=== PATIENT | female | born 1940 | race Caucasian/White ===

== ENCOUNTER 2017-04-16 11:34 | Emergency (ER) | payer MEDICARE, MEDICAID ==
--- NOTE | 2017-04-16 12:49 | ER Document Report ---
ED General - General Mode of Arrival: Wheelchair Information source: Patient TRAVEL OUTSIDE OF THE [place] IN LAST 30 DAYS: No - HPI Onset: Other - Refer to HPI notes <JEREMIE JARRETT - Last Filed: 04/16/17 13:09> <ELISA LEDESMA - Last Filed: 04/16/17 16:12> <ARLENECAMILLA F - Last Filed: 04/16/17 18:20> - General Chief Complaint: Abdominal Pain Stated Complaint: STOMACH PAIN Time Seen by Provider: 04/16/17 12:46 Notes: Patient is a 76 year old female presenting to the emergency department for headache and abdominal pain. Patient's pain has been waxing and waning for 1 week. Patient states her pain is progressively getting worse. Patient also complains of nausea but no vomiting. Patient is followed by [facility]. Patient states that she has not had her blood pressure medications for 1 week because she ran out of her clonidine and lisinopril. Patient was evaluated at [facility] and sent to the ED for further evaluation. Patient has a history of hypertension, diabetes mellitus, hypercholesterolemia, migraine headaches, arthritis, and a hiatal hernia repair in 1994. Patient is allergic to tetracycline and morphine. (JEREMIE JARRETT) - Related Data Allergies/Adverse Reactions: tetracycline [Tetracycline] Allergy (Intermediate, Verified 04/16/17 11:42) rash morphine [Morphine] Allergy (Mild, Verified 04/16/17 11:42) itching Past Medical History - General Information source: Patient - Social History Smoking Status: Never Smoker Cigarette use (# per day): No Chew tobacco use (# tins/day): No Smoking Education Provided: No Frequency of alcohol use: None Drug Abuse: None Family History: None Patient has suicidal ideation: No Patient has homicidal ideation: No - Past Medical History Cardiac Medical History: Reports: Hx Hypercholesterolemia, Hx Hypertension Neurological Medical History: Reports: Hx Migraine - chronic ARAGON Endocrine Medical History: Reports: Hx Diabetes Mellitus Type 2 GI Medical History: Reports: Hx Gastroesophageal Reflux Disease Musculoskeltal Medical History: Reports Hx Arthritis, Reports Other - tendonitis in the knees bilaterally Past Surgical History: Reports: Hx Abdominal Surgery - hiatal hernia repair, Hx Hysterectomy, Hx Orthopedic Surgery - L Knee - Immunizations Hx Diphtheria, Pertussis, Tetanus Vaccination: No <JEREMIE JARRETT - Last Filed: 04/16/17 13:09> Review of Systems - Review of Systems Constitutional: No symptoms reported EENT: No symptoms reported Cardiovascular: No symptoms reported Respiratory: No symptoms reported Gastrointestinal: See HPI, Abdominal pain, Nausea Genitourinary: No symptoms reported Female Genitourinary: No symptoms reported Musculoskeletal: No symptoms reported Skin: No symptoms reported Hematologic/Lymphatic: No symptoms reported Neurological/Psychological: See HPI, Headaches -: Yes All other systems reviewed and negative <JEREMIE JARRETT - Last Filed: 04/16/17 13:09> Physical Exam - Vital signs Interpretation: Hypertensive <JEREMIE JARRETT - Last Filed: 04/16/17 13:09> <ELISA LEDESMA - Last Filed: 04/16/17 16:12> <CAMILLA JACOBS - Last Filed: 04/16/17 18:20> - Vital signs Vitals: Temp Pulse Resp BP Pulse Ox 97.8 F 83 20 180/80 H 97 04/16/17 11:42 04/16/17 11:42 04/16/17 11:42 04/16/17 11:42 04/16/17 11:42 - Notes Notes: GENERAL: Alert, interacts well. No acute distress. HEAD: Normocephalic, atraumatic. EYES: Appear normal. Pupils equal, round, and reactive to light. ENT: Moist mucus membranes, tongue midline. NECK: Full range of motion. Supple. Trachea midline. LUNGS: Clear to auscultation bilaterally, no wheezes, rales, or rhonchi. No respiratory distress. HEART: Regular rate and rhythm. No murmurs, gallops, or rubs. ABDOMEN: Tenderness to palpation over the left side. Hyperactive bowel sounds, resonant, lots of gas. Non-distended. EXTREMITIES: Moves all 4 extremities spontaneously. Normal strength. No edema. NEUROLOGICAL: Alert and oriented x3. Normal speech. No focal neurological deficits. GSC 15. PSYCH: Normal affect, normal mood. SKIN: Warm, dry, normal turgor. No rashes or lesions noted. (JEREMIE JARRETT) Course - Laboratory Result Diagrams: 04/16/17 12:15 04/16/17 12:15 <JEREMIE JARRETT - Last Filed: 04/16/17 13:09> - Laboratory Result Diagrams: 04/16/17 12:15 04/16/17 12:15 - Transfer of Care Care transferred to following provider: Dr. Jacobs <ELISA LEDESMA - Last Filed: 04/16/17 16:12> - Laboratory Result Diagrams: 04/16/17 12:15 04/16/17 12:15 <CAMILLA JACOBS - Last Filed: 04/16/17 18:20> - Re-evaluation Re-evalutation: 04/16/17 18:[address] read as diverticulosis without infection. Discharge home. ( CAMILLA JACOBS) - Vital Signs Vital signs: Temp Pulse Resp BP Pulse Ox 97.8 F 83 11 L 183/97 H 96 04/16/17 11:42 04/16/17 11:42 04/16/17 17:54 04/16/17 17:54 04/16/17 16:00 - Laboratory Laboratory results interpreted by me: 04/16/17 04/16/17 04/16/17 12:15 12:15 16:30 RDW 14.9 H Sodium 147.9 H BUN 30 H Est GFR ( Amer) 55 L Est GFR (Non-Af Amer) 46 L Glucose 129 H Calcium 10.4 H Urine Protein 30 H Ur Leukocyte Esterase SMALL H - Transfer of Care Notes: 04/16/17 16:10 Disposition pending results of abdomen and pelvis CT scan. (ELISA LEDESMA) Discharge <JEREMIE JARRETT - Last Filed: 04/16/17 13:09> <ELISA LEDESMA - Last Filed: 04/16/17 16:12> <CAMILLA JACOBS - Last Filed: 04/16/17 18:20> - Discharge Clinical Impression: Abdominal pain Qualifiers: Abdominal location: left lower quadrant Qualified Code(s): R10.32 - Left lower quadrant pain Condition: Good Disposition: HOME, SELF-CARE Referrals: RENAE ROSARIO FNP-C [Primary Care Provider] - Follow up as needed Scribe Documentation - Scribe Written by Scribe:: Aurora Villaseñor 04/16/2017 12:58 acting as scribe for :: Yadira <JEREMIE JARRETT - Last Filed: 04/16/17 13:09>
[2017-04-16] MEDS ORDERED: ONDANSETRON HCL INJ/PF 4 MG/2 ML SDV IV ONE ×2 (12:57→15:15)
[2017-04-16] MEDS ORDERED: NORMAL SALINE 1000 ML 1,000 ML IV ONE ×2 (12:57→15:41)
[2017-04-16] MEDS ORDERED: HYDROMORPHONE HCL INJ/PF 2 MG/ML AMPULE IV ONE ×2 (13:03→15:15)
[2017-04-16] MEDS ORDERED: HYDRALAZINE HCL INJ/PF 20 MG/1 ML SDV IV ONE (13:03)
[2017-04-16 13:22] LABS: ALANINE AMINOTRANSFERASE 21 U/L (9-52); ALBUMIN 4.2 g/dL (3.5-5.0); ALKALINE PHOSPHATASE 67 U/L (38-126); ANION GAP 14 (5-19); ASPARTATE AMINO TRANSFERASE 18 U/L (14-36); BILIRUBIN,DIRECT 0.3 mg/dL (0.0-0.4); BILIRUBIN,TOTAL 0.5 mg/dL (0.2-1.3); BLOOD UREA NITROGEN 30 mg/dL (7-20); CALCIUM 10.4 mg/dL (8.4-10.2); CARBON DIOXIDE 28 mmol/L (22-30); CHLORIDE 106 mmol/L (98-107); CREATININE RESULT 1.16 mg/dL (0.52-1.25); GLUCOSE 129 mg/dL (75-110); LIPASE 38.4 U/L (23-300); POTASSIUM 3.9 mmol/L (3.6-5.0); SODIUM 147.9 mmol/L (137-145); TOTAL PROTEIN 7.3 g/dL (6.3-8.2)
[2017-04-16 13:23] LABS: ABSOLUTE BASOPHILS # (AUTO) 0.1 10^3/uL (0.0-0.2); ABSOLUTE EOSINOPHILS # (AUTO) 0.3 10^3/uL (0.0-0.6); ABSOLUTE LYMPHOCYTES (AUTO) 2.2 10^3/uL (0.5-4.7); ABSOLUTE MONOCYTES (AUTO) 0.6 10^3/uL (0.1-1.4); BASOPHILS % (AUTO) 0.6 % (0-2); EOSINOPHILS % (AUTO) 2.6 % (0-6); HEMATOCRIT 37.6 % (36.0-47.0); HEMOGLOBIN 12.1 g/dL (12.0-15.5); HGB HCT DIFFERENCE -1.3; LYMPHOCYTES % (AUTO) 21.7 % (13-45); MEAN CORPUSCULAR HEMOGLOBIN 27.9 pg (27.0-33.4); MEAN CORPUSCULAR HGB CONC 32.2 g/dL (32.0-36.0); MEAN CORPUSCULAR VOLUME 87 fl (80-97); RED BLOOD COUNT 4.34 10^6/uL (3.72-5.28); RED CELL DISTRIBUTION WIDTH 14.9 % (11.5-14.0); SEGMENTED NEUTROPHILS % (AUTO) 69.1 % (42-78); WHITE BLOOD COUNT 10.2 10^3/uL (4.0-10.5)
[2017-04-16 16:54] LABS: APPEARANCE,URINE SLIGHTLY-CLOUDY; BILIRUBIN,URINE NEGATIVE (NEGATIVE); GLUCOSE, URINE NEGATIVE (NEGATIVE); KETONES,URINE NEGATIVE (NEGATIVE); LEUKOCYTE ESTERASE,URINE SMALL (NEGATIVE); NITRITE,URINE NEGATIVE (NEGATIVE); PROTEIN,URINE 30 mg/dL (NEGATIVE); URINE SPECIFIC GRAVITY 1.023; UROBILINOGEN,URINE NEGATIVE mg/dL (<2.0)
--- NOTE | 2017-04-16 17:51 | RADIOLOGY REPORT (SQ) ---
EXAM DESCRIPTION: CT ABD/PELVIS WITH IV ORAL COMPLETED DATE/TIME: 04/16/2017 5:38 pm REASON FOR STUDY: LEFT ABD PAIN X 1 WEEK, NAUSEA COMPARISON: None. TECHNIQUE: CT scan of the abdomen and pelvis performed with intravenous and oral contrast using yanet jorje scanning technique with dynamic intravenous contrast injection. Images reviewed with lung, soft t issue, and bone windows. Reconstructed coronal and sagittal MPR images reviewed. Delayed images for e valuation of the urinary system also acquired. All images stored on PACS. All CT scanners at this facility use dose modulation, iterative reconstruction, and/or weight based d osing when appropriate to reduce radiation dose to as low as reasonably achievable (ALARA). [facility]: Dose Right [facility]: CareDose [facility]: Dose Right [facility]: Teradose 4D [facility]: Quelle Energie CONTRAST TYPE AND DOSE: contrast/concentration: Isovue 370.00 mg/ml; Total Contrast Delivered: 88.0 ml; Total Saline Delivered: 69.0 ml RENAL FUNCTION: BUN 30 creatinine 1.16. RADIATION DOSE: Up-to-date CT equipment and radiation dose reduction techniques were employed. CTDIv ol: 11.6 - 16.9 mGy. DLP: 1414 mGy-cm.. LIMITATIONS: None. FINDINGS: LOWER CHEST: No significant findings. No nodules or infiltrates. LIVER: Normal size. No masses. No dilated ducts. SPLEEN: Normal size. No focal lesions. PANCREAS: No masses. No significant calcifications. No adjacent inflammation or peripancreatic fluid collections. Pancreatic duct not dilated. GALLBLADDER: No identified stones by CT criteria. No inflammatory changes to suggest cholecystitis. ADRENAL GLANDS: No significant masses or asymmetry. RIGHT KIDNEY AND URETER: No solid masses. No significant calcification. No hydronephrosis or hydroure ter. LEFT KIDNEY AND URETER: No solid masses. No significant calcification. No hydronephrosis or hydrouret er. AORTA AND VESSELS: No aneurysm. No dissection. Renal arteries, SMA, celiac without stenosis. RETROPERITONEUM: No retroperitoneal adenopathy, hemorrhage or masses. BOWEL AND PERITONEAL CAVITY: A few diverticuli in the descending and sigmoid colon. No obstruction. No visualized masses. No free fluid. No inflammatory changes or thickening of bowel wall. APPENDIX: Normal. PELVIS: No significant masses. Normal bladder. No free fluid. ABDOMINAL WALL: No masses. No hernias. BONES: No significant or acute findings. Degenerative changes the spine. OTHER: No other significant finding. IMPRESSION: MILD COLONIC DIVERTICULOSIS. NO CT FINDINGS OF ACUTE DIVERTICULITIS. NO OTHER SIGNIFIC ANT OR ACUTE FINDINGS IN THE ABDOMEN OR PELVIS. TECHNICAL DOCUMENTATION: JOB ID: [id number] Quality ID # [id number]: Final reports with documentation of one or more dose reduction techniques (e.g., Au tomated exposure control, adjustment of the mA and/or kV according to patient size, use of iterative reconstruction technique) 2010 [employer]- All Rights Reserved
[2017-04-16 17:56] VITALS: BP 183/97
== END 2017-04-16 18:32 | disposition home or self-care (01) ==
LOC: ER 11:34
DX: R10.32 Left lower quadrant pain (principal); R11.0 Nausea; K57.30 Diverticulosis of large intestine without perforation or abscess without bleeding; I10 Essential (primary) hypertension; T46.4X6A Underdosing of angiotensin-converting-enzyme inhibitors, initial encounter; T46.5X6A Underdosing of other antihypertensive drugs, initial encounter; Z91.128 Patient's intentional underdosing of medication regimen for other reason; Z91.14 Patient's other noncompliance with medication regimen; R51 Headache; E11.9 Type 2 diabetes mellitus without complications; Z86.69 Personal history of other diseases of the nervous system and sense organs; Z88.1 Allergy status to other antibiotic agents; Z88.5 Allergy status to narcotic agent
CPT/HCPCS: 96376; 99284; 96374; 96375; 36415; 83690; 85025; 80053; 81001; 74177; J0360; J1170; J2405; J7030

== ENCOUNTER 2017-07-18 10:17 | Emergency (ER) | payer MEDICARE, MEDICAID ==
[2017-07-18] MEDS ORDERED: NORMAL SALINE 500 ML IV ONE (10:38)
[2017-07-18] MEDS ORDERED: NORMAL SALINE 1000 ML 1,000 ML IV ONE (10:38)
[2017-07-18 10:59] LABS: ABSOLUTE BASOPHILS # (AUTO) 0.1 10^3/uL (0.0-0.2); ABSOLUTE EOSINOPHILS # (AUTO) 0.1 10^3/uL (0.0-0.6); ABSOLUTE MONOCYTES (AUTO) 0.6 10^3/uL (0.1-1.4); ABSOLUTE NEUT (AUTO) 7.2 10^3/uL (1.7-8.2); BASOPHILS % (AUTO) 0.7 % (0-2); EOSINOPHILS % (AUTO) 0.7 % (0-6); HEMATOCRIT 38.5 % (36.0-47.0); HEMOGLOBIN 12.8 g/dL (12.0-15.5); HGB HCT DIFFERENCE -0.1; LYMPHOCYTES % (AUTO) 20.4 % (13-45); MEAN CORPUSCULAR HGB CONC 33.4 g/dL (32.0-36.0); MEAN CORPUSCULAR VOLUME 87 fl (80-97); MONOCYTES % (AUTO) 5.9 % (3-13); RED BLOOD COUNT 4.43 10^6/uL (3.72-5.28); RED CELL DISTRIBUTION WIDTH 14.2 % (11.5-14.0); SEGMENTED NEUTROPHILS % (AUTO) 72.3 % (42-78)
[2017-07-18 11:21] LABS: ALANINE AMINOTRANSFERASE 21 U/L (9-52); ALBUMIN 4.5 g/dL (3.5-5.0); ALKALINE PHOSPHATASE 69 U/L (38-126); ASPARTATE AMINO TRANSFERASE 16 U/L (14-36); BILIRUBIN,DIRECT 0.3 mg/dL (0.0-0.4); BILIRUBIN,TOTAL 0.4 mg/dL (0.2-1.3); BLOOD UREA NITROGEN 25 mg/dL (7-20); CALCIUM 10.9 mg/dL (8.4-10.2); CARBON DIOXIDE 23 mmol/L (22-30); CHLORIDE 107 mmol/L (98-107); CREATINE KINASE 30 U/L (30-135); CREATININE RESULT 1.68 mg/dL (0.52-1.25); GLUCOSE 126 mg/dL (75-110); POTASSIUM 3.9 mmol/L (3.6-5.0); SODIUM 150.1 mmol/L (137-145); TOTAL PROTEIN 7.4 g/dL (6.3-8.2)
--- NOTE | 2017-07-18 11:26 | RADIOLOGY REPORT (SQ) ---
EXAM DESCRIPTION: CHEST SINGLE VIEW COMPLETED DATE/TIME: 07/18/2017 11:15 am REASON FOR STUDY: weakness COMPARISON: None. EXAM PARAMETERS: NUMBER OF VIEWS: One view. TECHNIQUE: Single frontal radiographic view of the chest acquired. RADIATION DOSE: NA LIMITATIONS: None. FINDINGS: LUNGS AND PLEURA: No opacities, masses or pneumothorax. No pleural effusion. MEDIASTINUM AND HILAR STRUCTURES: No masses. Contour normal. HEART AND VASCULAR STRUCTURES: Heart normal in size. Normal vasculature. BONES: No acute findings. HARDWARE: None in the chest. OTHER: No other significant finding. IMPRESSION: NO ACUTE RADIOGRAPHIC FINDING IN THE CHEST. TECHNICAL DOCUMENTATION: JOB ID: [id number]
[2017-07-18 11:36] LABS: MAGNESIUM 1.1 mg/dL (1.6-2.3)
[2017-07-18 11:37] LABS: ANION GAP 20 (5-19)
[2017-07-18] MEDS ORDERED: MAGNESIUM OXIDE 400 MG TABLET PO ONE (11:38)
[2017-07-18 11:39] LABS: TROPONIN I < 0.012 ng/mL
[2017-07-18 12:01] LABS: CREATINE KINASE MB 0.51 ng/mL (<4.55)
--- NOTE | 2017-07-18 13:48 | ER Document Report ---
ED General - General Chief Complaint: Weakness Stated Complaint: WEAKNESS Time Seen by Provider: 07/18/17 10:37 TRAVEL OUTSIDE OF THE [place] IN LAST 30 DAYS: No - HPI Patient complains to provider of: Weakness Notes: Patient coming in for generalized weakness states was slightly diaphoretic earlier this morning went to her job at the [employer] where it is hot continued to feel weak feeling unwell diaphoretic came to the ER. Patient states she does not drink very much water today states only had a Sprite today. Denies any fevers chills nausea vomiting chest pain abdominal pain diarrhea. Patient is resting comfortably upon my evaluation. Upon EMS arrival patient was hypotensive. Patient's blood pressure now in the ER is normal patient received 500 cc of fluid. - Related Data Allergies/Adverse Reactions: tetracycline [Tetracycline] Allergy (Intermediate, Verified 04/16/17 11:42) rash morphine [Morphine] Allergy (Mild, Verified 04/16/17 11:42) itching Past Medical History - Social History Smoking Status: Former Smoker Chew tobacco use (# tins/day): No Frequency of alcohol use: None Drug Abuse: None Family History: Reviewed & Not Pertinent Patient has suicidal ideation: No Patient has homicidal ideation: No - Past Medical History Cardiac Medical History: Reports: Hx Hypercholesterolemia, Hx Hypertension Neurological Medical History: Reports: Hx Migraine - chronic ARAGON Endocrine Medical History: Reports: Hx Diabetes Mellitus Type 2 Renal/ Medical History: Denies: Hx Peritoneal Dialysis GI Medical History: Reports: Hx Gastroesophageal Reflux Disease Musculoskeltal Medical History: Reports Hx Arthritis Past Surgical History: Reports: Hx Abdominal Surgery - hiatal hernia repair, Hx Hysterectomy, Hx Orthopedic Surgery - L Knee - Immunizations Hx Diphtheria, Pertussis, Tetanus Vaccination: No Review of Systems - Review of Systems Constitutional: Weakness EENT: No symptoms reported Cardiovascular: No symptoms reported Respiratory: No symptoms reported Gastrointestinal: No symptoms reported Genitourinary: No symptoms reported Female Genitourinary: No symptoms reported Musculoskeletal: No symptoms reported Skin: No symptoms reported Hematologic/Lymphatic: No symptoms reported Neurological/Psychological: No symptoms reported -: Yes All other systems reviewed and negative Physical Exam - Vital signs Vitals: Pulse Ox 99 07/18/17 10:25 Interpretation: Normal - General General appearance: Appears well, Alert - HEENT Head: Normocephalic, Atraumatic Eyes: Normal Pupils: PERRL - Respiratory Respiratory status: No respiratory distress Chest status: Nontender Breath sounds: Normal Chest palpation: Normal - Cardiovascular Rhythm: Regular Heart sounds: Normal auscultation Murmur: No - Abdominal Inspection: Normal Distension: No distension Bowel sounds: Normal Tenderness: Nontender Organomegaly: No organomegaly - Back Back: Normal, Nontender - Extremities General upper extremity: Normal inspection, Nontender, Normal color, Normal ROM , Normal temperature General lower extremity: Normal inspection, Nontender, Normal color, Normal ROM , Normal temperature, Normal weight bearing. No: Jamison's sign - Neurological Neuro grossly intact: Yes Cognition: Normal Orientation: AAOx4 [place] Coma Scale Eye Opening: Spontaneous Olegario Coma Scale Verbal: Oriented Olegario Coma Scale Motor: Obeys Commands Olegario Coma Scale Total: 15 Speech: Normal Motor strength normal: LUE, RUE, LLE, RLE Sensory: Normal - Psychological Associated symptoms: Normal affect, Normal mood - Skin Skin Temperature: Warm Skin Moisture: Dry Skin Color: Normal Course - Re-evaluation Re-evalutation: 07/18/17 15:20 Lab studies showed hypernatremia with some renal insufficiency. Patient also is hypomagnesemic. Discussed admission with the patient however stated she want to go back to work. Patient was able ambulate around the ER without any difficulty. Patient was given IV fluids here. Patient was encouraged follow- up primary care physician patient was encouraged to drink more water and less bright. Patient will be discharged home. - Vital Signs Vital signs: Temp Pulse Resp BP Pulse Ox 98.3 F 67 17 132/84 H 99 07/18/17 10:27 07/18/17 10:30 07/18/17 11:01 07/18/17 11:01 07/18/17 11:01 - Laboratory Result Diagrams: 07/18/17 10:35 07/18/17 10:35 Laboratory results interpreted by me: 07/18/17 07/18/17 10:35 10:35 RDW 14.2 H Sodium 150.1 H Anion Gap 20 H BUN 25 H Creatinine 1.68 H Est GFR ( Amer) 36 L Est GFR (Non-Af Amer) 30 L Glucose 126 H Calcium 10.9 H Magnesium 1.1 L* Discharge - Discharge Clinical Impression: Generalized weakness, Hypernatremia, Hypomagnesemia Condition: Good Disposition: HOME, SELF-CARE Instructions: Weakness ([facility]), Dehydration ([facility]), Family Physicians / Practices Additional Instructions: Your laboratory studies today show elevated sodium and low magnesium. Elevated sodium is more likely due to dehydration. Your magnesium is due to lack of foods with magnesium. I will highly recommend she follow-up with primary care physician in 1-2 weeks. A list of primary care physicians in the area were given to you. Please make sure why you are working that you are drinking plenty of water return to the ER symptoms worsen.
[2017-07-18 14:41] VITALS: BP 152/81
--- NOTE | 2017-07-18 18:27 | EKG REPORT ---
SEVERITY:- ABNORMAL ECG - SINUS RHYTHM LEFT VENTRICULAR HYPERTROPHY : Confirmed by: Sylvia Hurst 18-Jul-2017 18:26:53
== END 2017-07-18 14:43 | disposition home or self-care (01) ==
LOC: ER 10:17
DX: E83.42 Hypomagnesemia (principal); E87.0 Hyperosmolality and hypernatremia; N28.9 Disorder of kidney and ureter, unspecified; R53.1 Weakness; R61 Generalized hyperhidrosis; E11.9 Type 2 diabetes mellitus without complications; I10 Essential (primary) hypertension; Z88.1 Allergy status to other antibiotic agents; Z88.5 Allergy status to narcotic agent; Z87.891 Personal history of nicotine dependence
CPT/HCPCS: 93005; 99285; 96360; 96361; 36415; 82553; 82550; 83735; 85025; 80053; 84484; 71010; 93010; A9270; J7030; J7040

== ENCOUNTER → 2017-08-04 | Day surgery (SDC) | payer MEDICARE, MEDICAID ==
[~2017-08-04] MED LIST: BUPIVACAINE HCL 0.5 % INJ/PF 30 ML SDV ONE
--- NOTE | 2017-08-04 10:41 | Operative Report ---
PROCEDURE: KNEE RADIOFREQUENCY left under ultrasound guidance Preoperative Diagnosis: Left knee osteoarthritis Postoperative Diagnosis: Left knee osteoarthritis 1. Superolateral genicular branch from the vastus lateralis 2. Superomedial genicular branch from the vastus medialis 3. Inferomedial genicular branch from the saphenous nerve DATE OF PROCEDURE: August 04, 2017 ANESTHESIA: Local anesthesia COMPLICATIONS: None reported PROCEDURE IN DETAIL: Hx/PE/meds/allergies/applicable labs reviewed. No changes and no contraindications were found. Full description of the procedure was provided including benefits as well as possible complications including transient increased pain, stomach irritation, mood alteration, transient weakness or parasthesias as well as more serious nerve injury, bleeding, infection or allergic reaction. Informed consent was obtained and documented. The patient was brought to the procedure room and placed on the exam table in a comfortable supine position. The place for needle placement was obtained by manual palpation with ultrasound confirmation. The sterile field was prepared by chloroprep and sterile drapes. Local anesthesia superficial and deep was provided by local infiltration of 2% lidocaine. A 17g 50mm radiofrequency introducer needle with a 4 mm active tip was placed overlying the left knee joint and using ultrasound guidance the needle was advanced to a bony endpoint on the superiolateral portion of the femoral condyle of the left knee. A second needle was advanced to a bony endpoint on the superiomedial portion of the femoral condyle. A third needle was then placed over the inferiomedial portion of the tibial condyle until a bony endpoint was met. Attempted aspiration yielded no blood. Transverse ultrasound views showed all the needles at 50% depth of the femur and tibia. Motor stimulation was tested at 2.0 volts with no leg movement. Images were saved in AP and lateral. A mixture consisting of 0.5% bupivacaine was slowly injected. Then a radiofrequency ablation of each of the geniculate nerves were done at 80 degrees Celsius for 2 minutes and 30 seconds each. The needles were withdrawn. The patient tolerated the procedure well. After observation the patient was discharged with instructions and follow up. They were also provided contact information to call regarding any concerning symptoms or questions. IMPRESSION: 1. Successful geniculate left knee radiofrequency ablation was performed. 2. The patient was given prescription of home medicines. 3. RTC in 1-2 week(s).
== END ==
LOC: RAD 09:33
PROVIDERS: ATTEND Family Medicine
DX: M17.0 Bilateral primary osteoarthritis of knee (principal)
CPT/HCPCS: 64640

== ENCOUNTER 2018-08-13 18:57 | Emergency (ER) | payer MEDICARE, MEDICAID ==
--- NOTE | 2018-08-13 19:50 | ER Document Report ---
ED Medical Screen (RME) - General Chief Complaint: Leg Pain Stated Complaint: LEFT LEG INJURY Time Seen by Provider: 08/13/18 19:49 Mode of Arrival: Wheelchair Information source: Patient TRAVEL OUTSIDE OF THE [place] IN LAST 30 DAYS: No - HPI Patient complains to provider of: L leg pain Onset: Other - pt. fell at home approx 10 days ago -- has had non-healing wound since then and now with increased pain and surrounding redness - Related Data Allergies/Adverse Reactions: tetracycline [Tetracycline] Allergy (Intermediate, Verified 04/16/17 11:42) rash morphine [Morphine] Allergy (Mild, Verified 04/16/17 11:42) itching Past Medical History - Past Medical History Cardiac Medical History: Reports: Hx Hypercholesterolemia, Hx Hypertension Neurological Medical History: Reports: Hx Migraine - chronic ARAGON Endocrine Medical History: Reports: Hx Diabetes Mellitus Type 2 Renal/ Medical History: Denies: Hx Peritoneal Dialysis GI Medical History: Reports: Hx Gastroesophageal Reflux Disease Musculoskeltal Medical History: Reports Hx Arthritis Past Surgical History: Reports: Hx Abdominal Surgery - hiatal hernia repair, Hx Hysterectomy, Hx Orthopedic Surgery - L Knee - Immunizations Hx Diphtheria, Pertussis, Tetanus Vaccination: No Physical Exam - Vital signs Vitals: Temp Pulse Resp BP Pulse Ox 98.2 F 61 16 164/79 H 97 08/13/18 19:30 08/13/18 19:30 08/13/18 19:30 08/13/18 19:30 08/13/18 19:30 Course - Vital Signs Vital signs: Temp Pulse Resp BP Pulse Ox 98.2 F 61 16 164/79 H 97 08/13/18 19:30 08/13/18 19:30 08/13/18 19:30 08/13/18 19:30 08/13/18 19:30 Doctor's Discharge - Discharge Referrals: SONIA KIMBLE FNP-C [Primary Care Provider] - Follow up as needed
[2018-08-13 20:22] LABS: ABSOLUTE BASOPHILS # (AUTO) 0.1 10^3/uL (0.0-0.2); ABSOLUTE EOSINOPHILS # (AUTO) 0.4 10^3/uL (0.0-0.6); ABSOLUTE LYMPHOCYTES (AUTO) 1.3 10^3/uL (0.5-4.7); ABSOLUTE MONOCYTES (AUTO) 0.6 10^3/uL (0.1-1.4); ABSOLUTE NEUT (AUTO) 6.8 10^3/uL (1.7-8.2); BASOPHILS % (AUTO) 0.9 % (0-2); EOSINOPHILS % (AUTO) 4.6 % (0-6); HEMATOCRIT 35.7 % (36.0-47.0); HEMOGLOBIN 11.9 g/dL (12.0-15.5); LYMPHOCYTES % (AUTO) 13.7 % (13-45); MEAN CORPUSCULAR HEMOGLOBIN 29.8 pg (27.0-33.4); MEAN CORPUSCULAR HGB CONC 33.4 g/dL (32.0-36.0); MEAN CORPUSCULAR VOLUME 89 fl (80-97); MONOCYTES % (AUTO) 6.1 % (3-13); PLATELET COUNT 344 10^3/uL (150-450); RED CELL DISTRIBUTION WIDTH 13.7 % (11.5-14.0); SEGMENTED NEUTROPHILS % (AUTO) 74.7 % (42-78); TOTAL CELLS COUNTED % (AUTO) 100 %; WHITE BLOOD COUNT 9.2 10^3/uL (4.0-10.5)
--- NOTE | 2018-08-13 20:28 | ER Document Report ---
ED General - General Chief Complaint: Leg Pain Stated Complaint: LEFT LEG INJURY Time Seen by Provider: 08/13/18 19:49 Mode of Arrival: Wheelchair Notes: Patient is a 77-year-old female with diabetes and hypertension that presents to the emergency department for chief complaint of left leg redness. Patient states that she tripped over a week ago, and scraped her left gallego on the concrete, she has been trying to keep it clean, but it started becoming more red and painful so she decided come to the emergency department. She initially try to go an urgent care but they were close. She currently rates the pain as a 4 out of 10, describes as an aching sensation, and worse with walking. She denies any any fevers, chills, night sweats, nausea, vomiting or abdominal pain. Denies any recent chest pain or shortness of breath. Past Medical History: Diabetes mellitus, hypertension, hyperlipidemia Past Surgical History: Hysterectomy Social History: Denies tobacco or illicit drug use or alcohol use. Family History: Reviewed and noncontributory for presenting illness Allergies: Reviewed, see documented allergy list. REVIEW OF SYSTEMS: Other than noted above, the 12 point review of systems was reviewed with the patient and were negative, all pertinent findings are included in the HPI. PHYSICAL EXAMINATION: Vital signs reviewed, nursing noted reviewed. GENERAL: Well-appearing, well-nourished and in no acute distress. HEAD: Atraumatic, normocephalic. EYES: Eyes appear normal, extraocular movements intact, sclera anicteric, conjunctiva are normal. ENT: nares patent, oropharynx clear without exudates. Moist mucous membranes. NECK: Normal range of motion, supple without lymphadenopathy LUNGS: Breath sounds clear to auscultation bilaterally and equal. No wheezes rales or rhonchi. HEART: Regular rate and rhythm without murmurs ABDOMEN: Soft, nontender, normoactive bowel sounds. No rebound, guarding, or rigidity. No masses appreciated. EXTREMITIES: The left anterior lower leg, has a skin tear that measures approximately 3 and half centimeters in length, and 2 cm in width, extending medially to laterally. There is no active bleeding, there is surrounding erythema that measures approximately 6 cm x 6 cm with tenderness with palpation to this area, no crepitus. Is not circumferential. There is no inguinal lymphadenopathy in the left or the right. Patient noted to have some varicose veins in the feet, without active bleeding., The rest the patient's extremity exam is grossly unremarkable good range of motion NEUROLOGICAL: No focal neurological deficits. Moves all extremities spontaneously Motor and sensory grossly intact on exam. PSYCH: Normal mood, normal affect. SKIN: Warm, Dry, normal turgor, no rashes or lesions noted on exposed skin TRAVEL OUTSIDE OF THE [place] IN LAST 30 DAYS: No - Related Data Allergies/Adverse Reactions: morphine [Morphine] Allergy (Mild, Verified 04/16/17 11:42) itching Past Medical History - General Information source: Patient - Social History Smoking Status: Unknown if Ever Smoked Family History: Reviewed & Not Pertinent Patient has suicidal ideation: No Patient has homicidal ideation: No - Past Medical History Cardiac Medical History: Reports: Hx Hypercholesterolemia, Hx Hypertension Neurological Medical History: Reports: Hx Migraine - chronic ARAGON Endocrine Medical History: Reports: Hx Diabetes Mellitus Type 2 Renal/ Medical History: Denies: Hx Peritoneal Dialysis GI Medical History: Reports: Hx Gastroesophageal Reflux Disease Musculoskeletal Medical History: Reports Hx Arthritis Past Surgical History: Reports: Hx Abdominal Surgery - hiatal hernia repair, Hx Hysterectomy, Hx Orthopedic Surgery - L Knee - Immunizations Hx Diphtheria, Pertussis, Tetanus Vaccination: No Physical Exam - Vital signs Vitals: Temp Pulse Resp BP Pulse Ox 98.2 F 61 16 164/79 H 97 08/13/18 19:30 08/13/18 19:30 08/13/18 19:30 08/13/18 19:30 08/13/18 19:30 Course - Re-evaluation Re-evalutation: Patient seen and examined vital signs reviewed. Laboratory data and imaging were ordered as appropriate for the patient's presenting symptoms and complaint, with consideration of any critical or life threatening conditions that may be associated with their obtained history and exam as noted above. Patient was treated with doxycycline, and wound care Results were reviewed when available and demonstrated no leukocytosis, blood work was essentially unremarkable, mild hypernatremia The patient was re-evaluated and was stable Evaluation was most consistent with left lower extremity cellulitis, will start the patient on doxycycline, for 7 days, she is given a [place] dispense pack of 6 tablets to take if needed for breakthrough pain, and advised to follow-up with her primary care physician. Results were discussed with the patient at this point, after careful consideration I feel that that patient can be discharged from the emergency department, the patient was educated treatments and reasons to return to the emergency department based on their presumed diagnosis as noted above, they were advised to followup with a primary care physician in 2-3 days. Patient was agreeable to plan of care. *Note is created using voice recognition software and may contain spelling, syntax or grammatical errors. Laboratory 08/13/18 08/13/18 20:00 20:00 WBC 9.2 RBC 4.00 Hgb 11.9 L Hct 35.7 L MCV 89 MCH 29.8 MCHC 33.4 RDW 13.7 Plt Count 344 Seg Neutrophils % 74.7 Lymphocytes % 13.7 Monocytes % 6.1 Eosinophils % 4.6 Basophils % 0.9 Absolute Neutrophils 6.8 Absolute Lymphocytes 1.3 Absolute Monocytes 0.6 Absolute Eosinophils 0.4 Absolute Basophils 0.1 Sodium 146.4 H Potassium 3.7 Chloride 103 Carbon Dioxide 31 H Anion Gap 12 BUN 27 H Creatinine 1.14 Est GFR ( Amer) 56 L Est GFR (Non-Af Amer) 46 L Glucose 107 Calcium 10.7 H Total Bilirubin 0.3 Direct Bilirubin 0.3 Neonat Total Bilirubin Not Reportable Neonat Direct Bilirubin Not Reportable Neonat Indirect Bili Not Reportable AST 19 ALT 17 Alkaline Phosphatase 79 Total Protein 6.9 Albumin 4.0 - Vital Signs Vital signs: Temp Pulse Resp BP Pulse Ox 98.2 F 67 16 161/77 H 100 08/13/18 21:03 08/13/18 21:03 08/13/18 19:30 08/13/18 21:03 08/13/18 21:03 - Laboratory Result Diagrams: 08/13/18 20:00 08/13/18 20:00 Laboratory results interpreted by me: 08/13/18 08/13/18 20:00 20:00 Hgb 11.9 L Hct 35.7 L Sodium 146.4 H Carbon Dioxide 31 H BUN 27 H Est GFR ( Amer) 56 L Est GFR (Non-Af Amer) 46 L Calcium 10.7 H Discharge - Discharge Clinical Impression: Left leg cellulitis Condition: Stable Disposition: HOME, SELF-CARE Instructions: Cellulitis ([facility]) Additional Instructions: Please return to the emergency department if you have any worsening, or concern of your symptoms. Please return to the emergency department if you develop chest pain, difficulty breathing, severe abdominal pain, or ongoing vomiting. Please follow-up with your primary care physician in 2-3 days and any other recommended physicians. If prescribed, take all medications as directed. If you have any questions or concerns do not hesitate to return the emergency department for evaluation. Prescriptions: Doxycycline Hyclate 100 mg PO BID #14 capsule Referrals: SONIA KIMBLE FNP-C [NO LOCAL MD] - Follow up in 3-5 days
[2018-08-13] MEDS ORDERED: DOXYCYCLINE HYCLATE 100 MG TABLET PO ONE (20:37)
[2018-08-13] MEDS ORDERED: IBUPROFEN 600 MG TABLET PO ONE (20:39)
[2018-08-13] MEDS ORDERED: HYDROCODONE/ACETAMINOPHEN 5-325 MG (6 TAB/ER DISP) PO PRN (20:40)
[2018-08-13 20:48] LABS: ALANINE AMINOTRANSFERASE 17 U/L (9-52); ALKALINE PHOSPHATASE 79 U/L (38-126); ANION GAP 12 (5-19); ASPARTATE AMINO TRANSFERASE 19 U/L (14-36); BILIRUBIN,DIRECT 0.3 mg/dL (0.0-0.4); BILIRUBIN,TOTAL 0.3 mg/dL (0.2-1.3); BLOOD UREA NITROGEN 27 mg/dL (7-20); CALCIUM 10.7 mg/dL (8.4-10.2); CARBON DIOXIDE 31 mmol/L (22-30); CHLORIDE 103 mmol/L (98-107); GLUCOSE 107 mg/dL (75-110); POTASSIUM 3.7 mmol/L (3.6-5.0); SODIUM 146.4 mmol/L (137-145); TOTAL PROTEIN 6.9 g/dL (6.3-8.2)
[2018-08-13 21:07] VITALS: BP 161/77
== END 2018-08-13 21:07 | disposition home or self-care (01) ==
LOC: ER 18:57
DX: S81.812A Laceration without foreign body, left lower leg, initial encounter (principal); L03.116 Cellulitis of left lower limb; W19.XXXA Unspecified fall, initial encounter; Y92.008 Other place in unspecified non-institutional (private) residence as the place of occurrence of the external cause; E11.9 Type 2 diabetes mellitus without complications; I10 Essential (primary) hypertension; I86.8 Varicose veins of other specified sites; Z88.5 Allergy status to narcotic agent
CPT/HCPCS: 99283; 36415; 85025; 80053; A9270 ×3

== ENCOUNTER 2018-09-18 08:03 | Emergency (ER) | payer MEDICARE, MEDICAID ==
[2018-09-18] MEDS ORDERED: METHYLPREDNISOLONE INJ 125 MG/2 ML SDV IV ONE (08:41)
[2018-09-18] MEDS ORDERED: IPRATROPIUM/ALBUTEROL 0.5-2.5 MG/3 ML AMPUL NEB ONE (08:41)
--- NOTE | 2018-09-18 08:53 | RADIOLOGY REPORT (SQ) ---
EXAM DESCRIPTION: CHEST 2 VIEWS COMPLETED DATE/TIME: 09/18/2018 8:32 am REASON FOR STUDY: sob, cough x2 weeks COMPARISON: 07/18/2017 EXAM PARAMETERS: NUMBER OF VIEWS: two views TECHNIQUE: Digital Frontal and Lateral radiographic views of the chest acquired. RADIATION DOSE: NA LIMITATIONS: none FINDINGS: LUNGS AND PLEURA: No opacities, masses or pneumothorax. No pleural effusion. MEDIASTINUM AND HILAR STRUCTURES: No masses or contour abnormalities. HEART AND VASCULAR STRUCTURES: Heart normal size. No evidence for failure. BONES: Disc degenerative disease of the thoracic spine HARDWARE: None in the chest. OTHER: No other significant finding. IMPRESSION: No acute abnormality of the lungs. No focal airspace opacity. TECHNICAL DOCUMENTATION: JOB ID: [id number] [employer]- All Rights Reserved Reading location - IP/workstation name: [email or web address]
[2018-09-18 09:03] LABS: ABSOLUTE EOSINOPHILS # (AUTO) 0.4 10^3/uL (0.0-0.6); ABSOLUTE LYMPHOCYTES (AUTO) 2.2 10^3/uL (0.5-4.7); ABSOLUTE MONOCYTES (AUTO) 0.7 10^3/uL (0.1-1.4); ABSOLUTE NEUT (AUTO) 8.7 10^3/uL (1.7-8.2); BASOPHILS % (AUTO) 0.4 % (0-2); EOSINOPHILS % (AUTO) 3.1 % (0-6); HEMATOCRIT 40.4 % (36.0-47.0); HEMOGLOBIN 13.6 g/dL (12.0-15.5); LYMPHOCYTES % (AUTO) 18.3 % (13-45); MEAN CORPUSCULAR HEMOGLOBIN 29.8 pg (27.0-33.4); MEAN CORPUSCULAR HGB CONC 33.6 g/dL (32.0-36.0); MEAN CORPUSCULAR VOLUME 89 fl (80-97); MONOCYTES % (AUTO) 5.7 % (3-13); RED BLOOD COUNT 4.56 10^6/uL (3.72-5.28); RED CELL DISTRIBUTION WIDTH 13.7 % (11.5-14.0); SEGMENTED NEUTROPHILS % (AUTO) 72.5 % (42-78); TOTAL CELLS COUNTED % (AUTO) 100 %
[2018-09-18 09:23] LABS: PLATELET COUNT 251 10^3/uL (150-450)
[2018-09-18 11:10] LABS: ALANINE AMINOTRANSFERASE 14 U/L (9-52); ALBUMIN 3.7 g/dL (3.5-5.0); ALKALINE PHOSPHATASE 91 U/L (38-126); ANION GAP 11 (5-19); ASPARTATE AMINO TRANSFERASE 15 U/L (14-36); BILIRUBIN,DIRECT 0.5 mg/dL (0.0-0.4); BILIRUBIN,TOTAL 0.5 mg/dL (0.2-1.3); BLOOD UREA NITROGEN 30 mg/dL (7-20); CARBON DIOXIDE 25 mmol/L (22-30); CHLORIDE 106 mmol/L (98-107); GLUCOSE 132 mg/dL (75-110); POTASSIUM 3.5 mmol/L (3.6-5.0); SODIUM 141.5 mmol/L (137-145); TOTAL PROTEIN 6.5 g/dL (6.3-8.2)
[2018-09-18] MEDS ORDERED: POTASSIUM CHLORIDE 10 MEQ CAPSULE.ER PO ONE (11:30)
[2018-09-18 13:10] LABS: A TYPE INFLUENZA AG NEGATIVE (NEGATIVE); B INFLUENZA AG NEGATIVE (NEGATIVE)
--- NOTE | 2018-09-18 13:19 | EKG REPORT ---
SEVERITY:- ABNORMAL ECG - SINUS RHYTHM CONSIDER LEFT VENTRICULAR HYPERTROPHY : Confirmed by: Shin Samaniego MD 18-Sep-2018 13:19:18
--- NOTE | 2018-09-18 14:11 | ER Document Report ---
ED Respiratory Problem - General Chief Complaint: Nasal Congestion Stated Complaint: COUGH Time Seen by Provider: 09/18/18 08:18 Mode of Arrival: Wheelchair Information source: Patient Notes: Patient is a 77-year-old female who presents to the emergency department with complaints of cough, congestion and nasal drainage over the last 2 weeks. Patient reports cough is occasionally productive with whitish sputum. Patient denies any fevers but does report occasional chills. Patient reports she is concerned because the room she is staying in her house only has a space heater so it is hard for her to control the temperature which she feels may have contributed to her illness. She is accompanied by her emotional support dog. Patient reports past medical history of hypertension, denies any history of asthma or COPD. Patient reports remote history of smoking. TRAVEL OUTSIDE OF THE [place] IN LAST 30 DAYS: No - Related Data Allergies/Adverse Reactions: morphine [Morphine] Allergy (Mild, Verified 09/18/18 08:04) itching Past Medical History - General Information source: Patient - Social History Smoking Status: Former Smoker Chew tobacco use (# tins/day): No Frequency of alcohol use: None Drug Abuse: None Family History: Reviewed & Not Pertinent Patient has suicidal ideation: No Patient has homicidal ideation: No - Past Medical History Cardiac Medical History: Reports: Hx Hypercholesterolemia, Hx Hypertension Neurological Medical History: Reports: Hx Migraine - chronic ARAGON Endocrine Medical History: Reports: Hx Diabetes Mellitus Type 2 Renal/ Medical History: Denies: Hx Peritoneal Dialysis GI Medical History: Reports: Hx Gastroesophageal Reflux Disease Musculoskeletal Medical History: Reports Hx Arthritis Past Surgical History: Reports: Hx Abdominal Surgery - hiatal hernia repair, Hx Hysterectomy, Hx Orthopedic Surgery - L Knee - Immunizations Hx Diphtheria, Pertussis, Tetanus Vaccination: No Review of Systems - Review of Systems EENT: Nose congestion, Nose discharge Respiratory: Cough, Short of breath, Sputum - White -: Yes All other systems reviewed and negative Physical Exam - Vital signs Vitals: Temp Pulse Resp BP Pulse Ox 97.7 F 119 H 18 150/96 H 94 09/18/18 08:08 09/18/18 08:08 09/18/18 08:08 09/18/18 08:08 09/18/18 08:08 - Notes Notes: PHYSICAL EXAMINATION: GENERAL: Well-appearing, well-nourished. HEAD: Atraumatic, normocephalic. EYES: Pupils equal round and reactive to light, extraocular movements intact, conjunctiva are normal. ENT: Nares patent, oropharynx clear without exudates. Moist mucous membranes. NECK: Normal range of motion, supple without lymphadenopathy LUNGS: Mild expiratory wheezing noted, no use of accessory muscles, noted dyspnea on exertion. HEART: S1-S2 present with no ectopy noted. ABDOMEN: Soft, nontender, nondistended abdomen. No guarding, no rebound. No masses appreciated. Female : No CVA tenderness. Musculoskeletal: Normal range of motion, no pitting or edema. No cyanosis. NEUROLOGICAL: Cranial nerves grossly intact. Normal speech. Normal sensory, motor exams PSYCH: Normal mood, normal affect. SKIN: Warm, Dry, normal turgor, no rashes or lesions noted. Course - Re-evaluation Re-evalutation: Patient short of breath on arrival from [facility]. Mild expiratory wheezing noted bilaterally. Will start DuoNeb and give 125 of Solu-Medrol IV pending workup. CBC with mild leukocytosis, white count 12. CBC otherwise unremarkable. Chest x-ray is unremarkable with no evidence of infiltrates or pneumothorax. Patient was initially tachycardic on arrival with a heart rate of 119, pulse ox was 94%. Patient denies any history of COPD. Lung sounds improved after DuoNeb treatment. Comprehensive metabolic panel was hemolyzed, awaiting redraw. CMP has resulted, mild hypokalemia noted at 3.5. Will replace with 40meq of p.o. potassium. Vital signs have improved, heart rate is currently 101. Patient is resting comfortably at this time. Influenza test was negative. Patient reports she feels well enough to go home. Her blood pressure is elevated however she reports she has not taken her blood pressure medications today. Patient is concerned and would like to be placed on antibiotic. I do feel that this is reasonable considering she has been sick at least 14 days with productive cough. I will place the patient on a course of prednisone and doxycycline with strict ED return precautions. - Vital Signs Vital signs: Temp Pulse Resp BP Pulse Ox 98.5 F 119 H 31 H 169/116 H 99 09/18/18 14:26 09/18/18 08:08 09/18/18 11:00 09/18/18 13:19 09/18/18 13:19 - Laboratory Result Diagrams: 09/18/18 08:46 09/18/18 10:16 Laboratory results interpreted by me: 09/18/18 09/18/18 08:46 10:16 WBC 12.0 H Absolute Neutrophils 8.7 H Potassium 3.5 L BUN 30 H Est GFR ( Amer) 54 L Est GFR (Non-Af Amer) 45 L Glucose 132 H Direct Bilirubin 0.5 H Discharge - Discharge Clinical Impression: Bronchitis, Cough Dyspnea Qualifiers: Dyspnea type: unspecified Qualified Code(s): R06.00 - Dyspnea, unspecified Condition: Stable Disposition: HOME, SELF-CARE Additional Instructions: BRONCHITIS: You have acute bronchitis. This disease is an infection or inflammation of the air passageways in your lungs. Symptoms usually include cough, low grade fever, shortness of breath, and wheezing. The cough usually persists for a couple of weeks. Most cases of bronchitis get better without antibiotics. We prescribe antibiotics when we believe bacteria are damaging your airways, or if there's high risk the bronchitis will worsen into pneumonia. Increase your fluid intake. A cool mist humidifier may make your lungs more comfortable. An expectorant (cough medicine that loosens phlegm) can help. If you smoke, STOP!!! Recovery from bronchitis can be somewhat slow, but you should see improvement within a day or two. Repeated episodes of bronchitis may result in lung damage -- for example, chronic bronchitis, recurrent pneumonias, or emphysema. Call the doctor if you develop increasing fever, shortness of breath, chest pain, bloody sputum, or otherwise worsen. If you have not improved at all after several days, contact the physician. INHALED BRONCHODILATORS: You have received a treatment of and/or prescription for an inhaled bronchodilator -- a medication which stimulates the airways in the lung to dilate. This improves the flow of air in asthma, bronchitis, and emphysema. These medicines have some similarity to adrenaline, and can cause similar side effects: shakiness, racing heart, and a sense of nervousness. These side effects decrease with time. Contact your doctor if these side effects are severe. Do not over-use the medicine. Too-frequent use of the inhaler may make it ineffective. Call your doctor if the inhaler is not controlling your symptoms at the prescribed doses. STEROID MEDICATION: You have been given an injection of or oral medicine of the co rtisone/steroid class. This medication is used to control inflammation or allergy. Joseph t is usually only given for a short period of time, until the acute process subsides. There are usually no side effects from short-term use of cortisone-like medications. Some persons feel an increased sense of well-being and are not sleepy at bedtime. Long-term use of cortisone medications is best avoided, unless required for a severe condition. If your condition does not remit, or relapses after the course of corticosteroid medication, you should consult your physician. ANTIBIOTIC THERAPY: You have been given an antibiotic prescription. It's important that you take all the medication, unless instructed otherwise by your physician. Failure to complete the entire course can result in relapse of your condition. Common side effects of antibiotics include nausea, intestinal cramping, or diarrhea. Women may develop vaginal yeast infections, and babies can get yeast (thrush) in the mouth following the use of antibiotics. Contact your physician if you develop significant side effects from this medication. Allergy to this antibiotic can result in hives, wheezing, faintness, or itching. If symptoms of allergy occur, stop the medication and call your doctor. DOXYCYCLINE: Doxycycline (Vibramycin, Doryx) is an antibiotic of the tetracycline family. This type of drug is useful for infections of the respiratory tract and genital tract, and is sometimes used for intestinal infections. Unlike most tetracyclines, doxycycline can be taken with food. It is long er acting, and (usually) less prone to side effects than regular tetracycline. Tetracycline antibiotics can stain immature teeth and SHOULD NOT BE TAKEN BY CHILDREN, NURSING MOTHERS, OR WOMEN. Tetracyclines can make you more prone to sunburn. Abdominal cramping, nausea, and diarrhea are occasional side effects. Women may experience vaginal yeast infections. Call the doctor at once if you develop hives, itching, shortness of breath, or lightheadedness. USE OF ACETAMINOPHEN (Tylenol): Acetaminophen may be taken for pain relief or fever control. It's much safer than aspirin, offering a wider range of "safe" dosages. It is safe during . Some brand names are Tylenol, Panadol, Datril, Anacin 3, Tempra, and Liquiprin. Acetaminophen can be repeated every four hours. The following are maximum recommended dosages: >89 pounds or adults 650 mg to 900 mg Acetaminophen can be repeated every four hours. Maximum dose not to exceed 4000 mg a day. SMOKING: If you smoke, you should stop smoking. The tar and chemicals in cigarette smoke are harmful. Smoking has been shown to cause: emphysema chronic bronchitis lung cancer mouth and throat cancer stomach and pancreas cancer premature aging defects In addition, smoking increases ear and lung infections in children of smokers. FOLLOW-UP CARE: If you have been referred to a physician for follow-up care, call the physicians office for an appointment as you were instructed or within the next two days. If you experience worsening or a significant change in your symptoms, notify the physician immediately or return to the Emergency Department at any time for re-evaluation. Please take all medications as prescribed. Please return to the emergency department if you experience worsening of her shortness of breath, development of fever or any other symptom that is concerning to you. Prescriptions: Doxycycline Hyclate 100 mg PO BID #14 capsule Fluticasone Propionate [Flonase Nasal Berwick 50 Mcg/Berwick 16 gm] 2 sprays NASL Q12 #1 inhaler Prednisone [Deltasone 20 mg Tablet] 3 tab PO DAILY 5 Days #15 tablet
[2018-09-18 14:20] VITALS: BP 169/116
== END 2018-09-18 14:27 | disposition home or self-care (01) ==
LOC: ER 08:03
DX: J40 Bronchitis, not specified as acute or chronic (principal); R05 Cough; R09.81 Nasal congestion; R68.83 Chills (without fever); I10 Essential (primary) hypertension; Z87.891 Personal history of nicotine dependence; Z88.5 Allergy status to narcotic agent; E11.9 Type 2 diabetes mellitus without complications; R06.02 Shortness of breath; R06.2 Wheezing; Z79.899 Other long term (current) drug therapy
CPT/HCPCS: 93005; 94640; 99284; 96374; 36415; 87040; 85025; 80053; 87804; 71046; 93010; J2930; A9270 ×2; J7620

== ENCOUNTER 2018-09-20 19:40 | Emergency (ER) | payer MEDICARE, MEDICAID ==
[2018-09-20] MEDS ORDERED: OXYCODONE-ACETAMINOPHEN 5-325 MG TABLET PO ONE (20:17)
[2018-09-20] MEDS ORDERED: LIDOCAINE 1% INJ-PF (10 MG/ML) 30 ML SDV INJ ONE (20:19)
--- NOTE | 2018-09-20 20:19 | ER Document Report ---
ED Medical Screen (RME) - General Chief Complaint: Arm Injury Stated Complaint: ARM PAIN Time Seen by Provider: 09/20/18 20:10 TRAVEL OUTSIDE OF THE [place] IN LAST 30 DAYS: No - HPI Notes: 09/20/18 20:17 Patient is a 77-year-old female that presents to the emergency department for chief complaint of left arm injury. Patient states just prior to arrival she was walking up the steps holding onto the handrail when she slipped. She landed on her left arm. She states she is having pain in the left wrist and elbow. The pain is worse with movement. She has not taken any medication for pain. She denies any numbness or tingling. She states her last tetanus vaccine was within the last year. ROS: GENERAL: Denies fever of chills CV: Denies chest pain PHYSICAL EXAMINATION: GENERAL: Well-appearing, well-nourished and in no acute distress. HEAD: Atraumatic, normocephalic. EYES: Pupils equal round extraocular movements intact, conjunctiva are normal. ENT: Nares patent NECK: Normal range of motion LUNGS: No respiratory distress Musculoskeletal: Left wrist edema and tenderness. Proximal left radial tenderness. Normal range of motion of left elbow. Normal left shoulder exam. NEUROLOGICAL: Normal speech, normal gait. PSYCH: Normal mood, normal affect. Skin: Stellate left elbow laceration MDM: Patient seen and examined for rapid initial assessment. Vital signs reviewed. A comprehensive ED assessment and evaluation of the patient, analysis of test results and completion of the medical decision making process will be conducted by additional ED providers. - Related Data Allergies/Adverse Reactions: morphine [Morphine] Allergy (Mild, Verified 09/18/18 08:04) itching Past Medical History - Social History Chew tobacco use (# tins/day): No Frequency of alcohol use: None Drug Abuse: None - Past Medical History Cardiac Medical History: Reports: Hx Hypercholesterolemia, Hx Hypertension Neurological Medical History: Reports: Hx Migraine - chronic ARAGON Endocrine Medical History: Reports: Hx Diabetes Mellitus Type 2 Renal/ Medical History: Denies: Hx Peritoneal Dialysis GI Medical History: Reports: Hx Gastroesophageal Reflux Disease Musculoskeltal Medical History: Reports Hx Arthritis Past Surgical History: Reports: Hx Abdominal Surgery - hiatal hernia repair, Hx Hysterectomy, Hx Orthopedic Surgery - L Knee - Immunizations Hx Diphtheria, Pertussis, Tetanus Vaccination: No Physical Exam - Vital signs Vitals: Temp Pulse Resp BP Pulse Ox 98.4 F 82 18 144/78 H 95 09/20/18 19:47 09/20/18 19:47 09/20/18 19:47 09/20/18 19:47 09/20/18 19:47 Course - Vital Signs Vital signs: Temp Pulse Resp BP Pulse Ox 98.4 F 82 18 144/78 H 95 09/20/18 19:47 09/20/18 19:47 09/20/18 19:47 09/20/18 19:47 09/20/18 19:47
--- NOTE | 2018-09-20 20:50 | RADIOLOGY REPORT (SQ) ---
EXAM DESCRIPTION: ELBOW LEFT AP/LATERAL COMPLETED DATE/TIME: 09/20/2018 8:38 pm REASON FOR STUDY: trauma COMPARISON: None. NUMBER OF VIEWS: Two views. TECHNIQUE: AP and lateral radiographic images acquired of the left elbow. LIMITATIONS: None. FINDINGS: MINERALIZATION: Normal. BONES: No acute fracture or dislocation. No worrisome bone lesions. JOINT: No effusion. SOFT TISSUES: No soft tissue swelling. No foreign body. OTHER: No other significant finding. IMPRESSION: NEGATIVE STUDY OF THE LEFT ELBOW. NO RADIOGRAPHIC EVIDENCE OF ACUTE INJURY. TECHNICAL DOCUMENTATION: JOB ID: [id number] [employer]- All Rights Reserved Reading location - IP/workstation name: [email or web address]
--- NOTE | 2018-09-20 20:51 | RADIOLOGY REPORT (SQ) ---
EXAM DESCRIPTION: WRIST LEFT 3 VIEWS COMPLETED DATE/TIME: 09/20/2018 8:38 pm REASON FOR STUDY: trauma COMPARISON: None. NUMBER OF VIEWS: Three views. TECHNIQUE: AP, lateral, and oblique radiographic images acquired of the left wrist. LIMITATIONS: None. FINDINGS: MINERALIZATION: Normal. BONES: Transverse fracture of the distal radius. Fracture of the ulnar styloid. SOFT TISSUES: No soft tissue swelling. No foreign body. OTHER: No other significant finding. IMPRESSION: Radial and ulnar fractures. TECHNICAL DOCUMENTATION: JOB ID: [id number] [employer]- All Rights Reserved Reading location - IP/workstation name: [email or web address]
[2018-09-20] MEDS ORDERED: FENTANYL CITRATE INJ/PF 100 MCG/2 ML AMPUL IM ONE (20:59)
[2018-09-20] MEDS ORDERED: DOXYCYCLINE HYCLATE 100 MG TABLET PO ONE (22:02)
[2018-09-20] MEDS ORDERED: LIDOCAINE 1% INJ-PF (10 MG/ML) 30 ML SDV ONE (22:14)
--- NOTE | 2018-09-20 22:26 | ER Document Report ---
ED Extremity Problem, Upper - General Chief Complaint: Arm Injury Stated Complaint: ARM PAIN Time Seen by Provider: 09/20/18 20:10 Mode of Arrival: Ambulatory Information source: Patient Notes: Patient is a 77-year-old female who presents to the emergency department with complaint of left arm pain after falling this evening. Patient reports she fell down 3 concrete steps on her back porch. She is complaining of pain to her left elbow and left wrist. There is swelling but no obvious deformity noted to the left wrist. There is a 3 cm laceration to her left upper arm, this is very superficial. There is also a laceration/to her left elbow with a large amount of debris and dirt. Patient reports she is up-to-date on her Tdap, states she had one done at her primary care doctor's office within the last 3 months. Patient does report she is feeling improved from her visit 2 days ago in which she was treated for bronchitis. Patient is accompanied by her sister who is at the bedside. TRAVEL OUTSIDE OF THE [place] IN LAST 30 DAYS: No - Related Data Allergies/Adverse Reactions: morphine [Morphine] Allergy (Mild, Verified 09/18/18 08:04) itching Past Medical History - General Information source: Patient, Relative - Sister @ bedside - Social History Smoking Status: Never Smoker Chew tobacco use (# tins/day): No Frequency of alcohol use: None Drug Abuse: None Family History: Reviewed & Not Pertinent Patient has suicidal ideation: No Patient has homicidal ideation: No - Past Medical History Cardiac Medical History: Reports: Hx Hypercholesterolemia, Hx Hypertension Neurological Medical History: Reports: Hx Migraine - chronic ARAGON Endocrine Medical History: Reports: Hx Diabetes Mellitus Type 2 Renal/ Medical History: Denies: Hx Peritoneal Dialysis GI Medical History: Reports: Hx Gastroesophageal Reflux Disease Musculoskeletal Medical History: Reports Hx Arthritis Past Surgical History: Reports: Hx Abdominal Surgery - hiatal hernia repair, Hx Hysterectomy, Hx Orthopedic Surgery - L Knee - Immunizations Hx Diphtheria, Pertussis, Tetanus Vaccination: No Review of Systems - Review of Systems Musculoskeletal: See HPI Neurological/Psychological: See HPI Physical Exam - Vital signs Vitals: Temp Pulse Resp BP Pulse Ox 98.4 F 82 18 144/78 H 95 09/20/18 19:47 09/20/18 19:47 09/20/18 19:47 09/20/18 19:47 09/20/18 19:47 - Notes Notes: PHYSICAL EXAMINATION: GENERAL: Well-appearing, well-nourished and in no acute distress. HEAD: Atraumatic, normocephalic. EYES: Pupils equal round extraocular movements intact, conjunctiva are normal. ENT: Nares patent, oropharynx clear. NECK: Normal range of motion LUNGS: No respiratory distress Musculoskeletal: Limited range of motion to patient's left wrist. Cap refill is less than 3 seconds, normal motor and sensation distal to injury. NEUROLOGICAL: Normal speech, normal gait. PSYCH: Normal mood, normal affect. SKIN: Warm, Dry, normal turgor, no rashes or lesions noted. 3 cm laceration to patient's left upper arm near the biceps, this is superficial. Avulsion noted to left elbow. Course - Re-evaluation Re-evalutation: X-rays reveal a fracture to the distal radius and ulna, these are nondisplaced. Cap refill is less than 3 seconds, normal motor and sensation distal to injury. Splint will be placed. Patient was given 75 mcg of fentanyl IM to help with her pain. Laceration was repaired under sterile technique, see procedure note. Avulsion to left elbow was also repaired, there was a large amount of debris this was copiously irrigated. Patient was given dose of her antibiotic she has not had her evening dose. Patient tolerated all procedures well, sister remained at bedside throughout and will be driving patient home. - Vital Signs Vital signs: Temp Pulse Resp BP Pulse Ox 98.4 F 82 18 144/78 H 95 09/20/18 19:47 09/20/18 19:47 09/20/18 19:47 09/20/18 19:47 09/20/18 19:47 Procedures - Immobilization Left wrist Pre-Proc Neuro Vasc Exam: Normal - Patient is Immobilizer type: Other Post-Proc Neuro Vasc Exam: Normal Alignment checked and good: Yes - Laceration/Wound Repair Left elbow Wound length (cm): 3 Wound's Depth, Shape: Irregular, Flap Laceration pre-procedure: Sterile PPE donned Anesthetic type: 1% Lidocaine Volume Anesthetic (mLs): 5 Wound explored: Contaminated, Foreign body removed Irrigated w/ Saline (mLs): 1,000 Wound Repaired With: Sutures Suture Size/Type: 4:0, Nylon Number of Sutures: 6 Post-procedure NV exam normal: Yes Complications: No Left upper arm Wound length (cm): 3 Wound's Depth, Shape: Superficial Laceration pre-procedure: Sterile PPE donned Anesthetic type: 1% Lidocaine Volume Anesthetic (mLs): 3 Wound explored: Clean Irrigated w/ Saline (mLs): 100 Wound Debrided: Minimal Wound Repaired With: Sutures Suture Size/Type: 4:0 Number of Sutures: 6 Layer Closure?: No Post-procedure wound care: Sterile dressing applied Post-procedure NV exam normal: Yes Complications: No Discharge - Discharge Clinical Impression: Laceration Fall Qualifiers: Encounter type: initial encounter Qualified Code(s): W19.XXXA - Unspecified fall, initial encounter Radius and ulna distal fracture Qualifiers: Encounter type: initial encounter Fracture type: closed Laterality: left Qualified Code(s): S52.502A - Unspecified fracture of the lower end of left radius, initial encounter for closed fracture Condition: Stable Disposition: HOME, SELF-CARE Additional Instructions: Fractured Radius and Ulna Both bones of the forearm, the radius and the ulna, are fractured. This type of fracture is typically caused by falling onto the outstretched hand. The fractures are not serious, however, and should heal well with adequate protection. Your physician's evaluation shows the bones are now in good position to heal. A cast or splint is used to protect the fractures. For the first few days after the injury, the arm should be elevated and ice packed. Most often, a splint is used first, with a cast later on. Healing takes from four to eight weeks, depending on the age of the patient and the seriousness of the broken bones. Your doctor has explained the treatment plan. It's important that you follow up as instructed to prevent complications. Call the doctor or return at once if severe pain or swelling occur, or if the hand becomes numb, swollen, or discolored. Ice & Elevation Apply ice packs frequently against the painful area. Many different schedules are recommended, such as "20 minutes on, 20 minutes off" or "one hour ice, two hours rest." If you need to work, you may need to go longer between ice treatments. You should plan to have the area ice packed AT LEAST one-fourth of the time. The ice should be applied over the wrap, tape, or splint, or over a layer of cloth -- not directly against the skin. Some ice bags have a built-in cloth and can be put directly on the skin. Your injured part should be elevated as much as possible over the next 48 hours. Try to keep the injury above the level of the heart. Avoid use of the injured area. Elevation and rest will decrease the swelling. Laceration Care Your laceration has been sutured to keep the skin edges aligned during healing. The time of suture removal depends on the nature and location of your cut. Please follow the care instructions the doctor has outlined for you and return for further care, according to the schedule you've been given. Keep the wound and dressing clean. Unless you were told otherwise, you may shower daily, blotting the wound dry with a clean, unused towel. At other times, If the dressing gets wet or blood soaked, remove it and blot the wound dry, then reapply a new dressing. Unless you were instructed otherwise, dressings should be changed at least daily. If any signs of infection occur (swelling, redness, increasing tenderness, red streaks, tender lumps in the armpit or groin above the laceration, or fever), see the doctor immediately. Please follow-up with orthopedics regarding your fracture keep the splint in place until seen by orthopedics. I have included a copy of the radiology report with your discharge papers. Ice and elevate your left wrist as outlined above. Wear the sling for comfort. Continue taking the doxycycline for your respiratory infection. Take pain medication as prescribed for the pain to your wrist. Please return to the emergency department or your primary care provider in 7 days for suture removal. Please return earlier if you develop any signs of infection such as increased redness, swelling, foul-smelling drainage or fever. Prescriptions: Cephalexin [Cephalexin 500 MG Tablet] 1 tab PO QID #28 tablet Hydrocodone Bit/Acetaminophen [Hydrocodon-Acetaminophen 5-325] 1 each PO Q4H #12 tablet Referrals: CLAUDIO FARLEY PA-C [Primary Care Provider] - Follow up as needed SENG KRAUS, [ACTIVE STAFF] - Follow up as needed
[2018-09-20 22:55] VITALS: BP 145/80
== END 2018-09-20 22:55 | disposition home or self-care (01) ==
LOC: ER 19:40
DX: S52.612A Displaced fracture of left ulna styloid process, initial encounter for closed fracture (principal); S52.592A Other fractures of lower end of left radius, initial encounter for closed fracture; S41.112A Laceration without foreign body of left upper arm, initial encounter; W10.8XXA Fall (on) (from) other stairs and steps, initial encounter; Y92.008 Other place in unspecified non-institutional (private) residence as the place of occurrence of the external cause; E11.9 Type 2 diabetes mellitus without complications; I10 Essential (primary) hypertension; Z88.5 Allergy status to narcotic agent
CPT/HCPCS: 99283; 96372; 73070; 73110; 12002; 29125; A9270 ×2; J3010

== ENCOUNTER 2018-09-25 11:54 | Emergency (ER) | payer MEDICARE, MEDICAID ==
--- NOTE | 2018-09-25 13:00 | RADIOLOGY REPORT (SQ) ---
EXAM DESCRIPTION: KNEE LEFT 4 VIEW COMPLETED DATE/TIME: 09/25/2018 12:48 pm REASON FOR STUDY: Fell onto knees this morning, left greater than ri COMPARISON: None. NUMBER OF VIEWS: Four views. TECHNIQUE: AP, lateral, and both oblique radiographic images acquired of the left knee. LIMITATIONS: None. FINDINGS: MINERALIZATION: Normal. BONES: No acute fracture or dislocation. No worrisome bone lesions. JOINT: No effusion. Severe degenerative changes involving the medial compartment and the patellofemo ral joint with mild changes involving the lateral compartment. Chondrocalcinosis. SOFT TISSUES: No soft tissue swelling. No radio-opaque foreign body. OTHER: No other significant finding. IMPRESSION: Severe degenerative changes involving the left knee. No evidence of fracture. TECHNICAL DOCUMENTATION: JOB ID: [id number] [employer]- All Rights Reserved Reading location - IP/workstation name: [email or web address]
--- NOTE | 2018-09-25 13:01 | RADIOLOGY REPORT (SQ) ---
EXAM DESCRIPTION: KNEE RIGHT 4 VIEWS COMPLETED DATE/TIME: 09/25/2018 12:48 pm REASON FOR STUDY: Fell onto knees this morning, left greater than ri COMPARISON: 01/23/2014. NUMBER OF VIEWS: Four views. TECHNIQUE: AP, lateral, and both oblique radiographic images acquired of the right knee. LIMITATIONS: None. FINDINGS: MINERALIZATION: Normal. BONES: Tricompartment degenerative arthritis of the right knee with narrowing of the medial knee join t. There is articular calcification compatible with chondrocalcinosis. JOINT: No effusion. SOFT TISSUES: Soft tissue swelling anterior and inferior to the right patella. OTHER: No other significant finding. IMPRESSION: Tricompartment degenerative arthritis the right knee. Chondrocalcinosis of the right kn ee. TECHNICAL DOCUMENTATION: JOB ID: [id number] SC-[id number] 2010 [employer]- All Rights Reserved Reading location - IP/workstation name: [email or web address]
--- NOTE | 2018-09-25 15:34 | ER Document Report ---
ED Fall - General Chief Complaint: Fall Stated Complaint: FALL Time Seen by Provider: 09/25/18 12:16 Notes: Patient fell out of her bed about 10 PM last night and injured her leg. She was reaching for some pills on her nightstand and lost her balance and slipped off the bed landing on her knees, primarily the left one. She says it is so painful she cannot stand on her feet. She slept very little, practically none at all, while laying on the floor throughout the night until she was found this morning by her next-door neighbor. She has a couple of bruises around the anterior aspect of her leg skin tear over the anterior aspect of the left knee. Patient says she has been falling a lot over the last year or 2. She fell just a week ago and fractured both bones at her wrist and sustained some cuts to the upper arms bilaterally, more so on the left. She was seen by her orthopedic doctor who put her in a cast of the left wrist which she has on currently and a couple of lacerations that required a couple of sutures. Patient does not think that she injured her he had in her fall. Has not been sick recently with any medical illness. No fevers. No nausea or vomiting or diarrhea. No urinary symptoms., Etc. Patient is left-hand dominant. TRAVEL OUTSIDE OF THE [place] IN LAST 30 DAYS: No - Related data Allergies/Adverse Reactions: morphine [Morphine] Allergy (Mild, Verified 09/18/18 08:04) itching Past Medical History - Social History Smoking Status: Unknown if Ever Smoked Family History: Reviewed & Not Pertinent Patient has suicidal ideation: No Patient has homicidal ideation: No - Past Medical History Cardiac Medical History: Reports: Hx Hypercholesterolemia, Hx Hypertension Neurological Medical History: Reports: Hx Migraine - chronic ARAGON Endocrine Medical History: Reports: Hx Diabetes Mellitus Type 2 GI Medical History: Reports: Hx Gastroesophageal Reflux Disease Musculoskeletal Medical History: Reports Hx Arthritis Past Surgical History: Reports: Hx Abdominal Surgery - hiatal hernia repair, Hx Hysterectomy, Hx Orthopedic Surgery - L Knee - Immunizations Hx Diphtheria, Pertussis, Tetanus Vaccination: No Review of Systems - Review of Systems Notes: REVIEW OF SYSTEMS: CONSTITUTIONAL : Denies fever. EENT: Denies eye, ear, nose or mouth or throat pain or other symptoms. CARDIOVASCULAR: Denies chest pain. RESPIRATORY: Denies cough, chest congestion, or shortness of breath. GASTROINTESTINAL: Denies abdominal pain or nausea, vomiting, or diarrhea. GENITOURINARY: Denies difficulty or painful urinating, urinary frequency, blood in urine. MUSCULOSKELETAL: Denies back or neck pain. See HPI. SKIN: Denies rash or skin lesions. Patient has numerous bruises of various size and age all over her body. Apparently from her many falls. NEUROLOGICAL: Denies LOC or altered mental status. Denies headache. Denies sensory loss or motor deficits. ALL OTHER SYSTEMS REVIEWED AND NEGATIVE. Physical Exam - Vital signs Vitals: Resp 10 L 09/25/18 12:04 Interpretation: Normal - Notes Notes: PHYSICAL EXAMINATION: GENERAL: Well-appearing, in no acute distress. HEAD: Very faint old appearing bruise in the left frontal forehead region. EYES: Pupils equal round and reactive to light, extraocular movements intact. ENT: oropharynx clear without exudates. Moist mucous membranes. NECK: Normal range of motion, supple. LUNGS: Breath sounds clear and equal bilaterally. HEART: Regular rate and rhythm without murmurs. ABDOMEN: Soft, nontender. No guarding or rebound. No masses. BACK: No tenderness throughout entire back. EXTREMITIES: Left knee was perhaps a very small amount of soft tissue swelling. Skin tear over the anterior left knee, over the patella, about 3-4 cm in size. Stressing the 4 major ligaments of both knees revealed no laxity of any of these ligaments in either knee. Patient has a fiberglass cast from the mid forearm to the hand. Above the cast on the patient's left wrist are several superficial looking cuts. A couple of these have some black suture material in them. None of this area shows any evidence of infection. Follow-up appears to be healing well. The right arm has less involvement and also shows no evidence of section. NEUROLOGICAL: Normal speech, gait not tested at this time. Normal sensory, motor, and reflex exams. Awake, alert, and oriented x3. Cranial nerves normal. PSYCH: Normal mood, normal affect. SKIN: Warm, dry, no rashes. Patient has many bruises over her entire body, of varying ages and size and color, probably related to the patient's frequent falls. Course - Re-evaluation Re-evalutation: 09/25/18 19:12 Patient slept a lot during the time she was here. Probably because she did not sleep much at all last night. She awakens easily, however. We were able to get patient to stand rather easily and she can ambulate, although it would be nice if she would use a walker. She refused to have a walker. I do not think she can handle crutches sufficiently to try them. I did write her a prescription for a walker, perhaps she will change her mind. - Vital Signs Vital signs: Temp Pulse Resp BP Pulse Ox 98.2 F 23 H 164/151 H 98 09/25/18 14:08 09/25/18 16:01 09/25/18 16:01 09/25/18 16:01 - Diagnostic Test Radiology results interpreted by me: 09/25/18 19:12 X-rays show arthritic changes but no fractures or dislocations or other bone abnormalities. Discharge - Discharge Clinical Impression: Fall, Contusion of left knee Condition: Stable Disposition: HOME, SELF-CARE Additional Instructions: HEAD INJURY PRECAUTIONS: At this point, there is no evidence that your head injury is serious. Observation is necessary, however. Take only clear liquids for the first few hours, unless told otherwise by the doctor. If no pain medication was prescribed, you may take acetaminophen according to the directions on the bottle. Do not take any medication that may alter your level of alertness (unless you've discussed it with the doctor first). Limit activity for the first 24 hours. Bed rest is best. During the first 24 hours, check to see approximately every two to three hours that the patient is easily arousable, responds normally, and can perform common tasks such as walking without difficulty. Contact your doctor or go to the hospital if any of the following things occur: Persistent vomiting, difficulty in arousing the patient, worsening or continued headache, or failure to improve as expected. Head injuries can cause symptoms that persist for a few days or even a few weeks. CONTUSION KNEES: Your injury has resulted in a contusion -- a crushing of the deep tissues. No injury to important structures was detected during the physician's exam. Contusions vary in the amount of pain they cause, and in the length of time required for healing. Typically, the area will become bruised, and will remain painful to touch for two or three weeks. However, most patients are back to working and playing within a few days. After the initial period of rest and cold-packs, your symptoms (together with the doctor's recommendations) will determine how rapidly you can get back to full activity. Usually this means "do what feels okay, but don't do things that hurt." If re-examination was recommended, it's important to follow up as instructed. Call the doctor or return any time if pain increases, if swelling becomes severe, if you develop numbness or weakness in an injured extremity, or if any other alarming symptoms occur. ABRASIONS: An abrasion is a scraping injury of the skin. Some scarring may result. The seriousness of an abrasion is not always obvious at first. Hidden tissue damage may be present and infection may occur despite proper care. Complete healing may take from ten days to as long as a month. The healing time depends on the depth of the abrasion, and on the amount of crushing of underlying tissues from the injury. Keep the wound and dressing clean. Do not shower or bathe the area until okayed by the doctor. If the dressing gets wet, remove it and blot the wound dry, then reapply a clean dressing. Dressings should be changed every day. Sunscreen should be used for six months after the skin is healed. If any signs of infection occur (swelling, redness, increasing tenderness, red streaks, profuse purulent drainage from the abrasion, tender lumps in the armpit or groin above the abrasion, or fever), see the doctor immediately. USE OF TYLENOL (ACETAMINOPHEN): Acetaminophen may be taken for pain relief or fever control. It's much safer than aspirin, offering a wider range of "safe" dosages. It is safe during . Some brand names are Tylenol, Panadol, Datril, Anacin 3, Tempra, and Liquiprin. Acetaminophen can be repeated every four hours. The following are maximum recommended dosages: WEIGHT Dose Drops Elixir Chewable(80mg) (LBS.) drprs=droppers tsp=teaspoon 6 40 mg 0.4 ml (1/2) >89 pounds or adults 650 mg to 900 mg Acetaminophen can be repeated every four hours. Maximum dose not to exceed 4000 mg a day. These maximum recommended dosages are slightly higher than the dosages written on the product container, but these dosages are very safe and below the toxic dosage for acetaminophen. Previously SUTURED LACERATION: Your laceration did not require suturing. Some lacerations cannot be sutured because of increased infection risk, while others simply don't need stitches because they are shallow or very short. Your injury should be protected while it heals. Usually complete healing takes 10 to 14 days. Keep the dressing clean and dry, and change it every day. If you notice increasing pain, redness, swelling, drainage, or tender lumps in the armpit or groin above the injury, infection may be present. You should call the doctor at once. You have many pain medications at home that you can take for pain, but be cautious about taking so many medications as they may be sedating you or causing you to have problems with your balance and falling. FOLLOW-UP CARE: If you have been referred to a physician for follow-up care, call the physicians office for an appointment as you were instructed or within the next two days. If you experience worsening or a significant change in your symptoms, notify the physician immediately or return to the Emergency Department at any time for re-evaluation. Prescriptions: Walker [Folding Walker] 1 each ASDIR PRN #1 each PRN Reason: Referrals: CLAUDIO FARLEY PA-C [Primary Care Provider] - Follow up as needed
[2018-09-25 16:06] VITALS: BP 164/151
== END 2018-09-25 16:16 | disposition home or self-care (01) ==
LOC: ER 11:54
DX: S80.02XA Contusion of left knee, initial encounter (principal); W06.XXXA Fall from bed, initial encounter; Z91.81 History of falling; I10 Essential (primary) hypertension; E11.9 Type 2 diabetes mellitus without complications; Z88.5 Allergy status to narcotic agent
CPT/HCPCS: 99284

== ENCOUNTER 2018-09-28 13:08 | Emergency (ER) | payer MEDICARE, MEDICAID ==
[2018-09-28 13:30] VITALS: BP 134/73
--- NOTE | 2018-09-28 15:07 | ER Document Report ---
ED Medical Screen (RME) - General Chief Complaint: Arm Pain Stated Complaint: FALL/ARM PAIN Time Seen by Provider: 09/28/18 14:58 Mode of Arrival: Ambulatory Information source: Patient Notes: Patient presents stating that she has been falling multiple times at home recently. Patient states she last fell 2 days ago. Patient states that she did hit her head and has multiple bruises to extremities. Patient complains of bilateral shoulder pain right side pain and right upper extremity pain I have greeted and performed a rapid initial assessment of this patient. A comprehensive ED assessment and evaluation of the patient, analysis of test results and completion of the medical decision making process will be conducted by additional ED providers. TRAVEL OUTSIDE OF THE [place] IN LAST 30 DAYS: No - Related Data Allergies/Adverse Reactions: morphine [Morphine] Allergy (Mild, Verified 09/28/18 14:45) itching Past Medical History - Social History Chew tobacco use (# tins/day): No Frequency of alcohol use: None Drug Abuse: None - Past Medical History Cardiac Medical History: Reports: Hx Hypercholesterolemia, Hx Hypertension Neurological Medical History: Reports: Hx Migraine - chronic ARAGON Endocrine Medical History: Reports: Hx Diabetes Mellitus Type 2 Renal/ Medical History: Denies: Hx Peritoneal Dialysis GI Medical History: Reports: Hx Gastroesophageal Reflux Disease Musculoskeltal Medical History: Reports Hx Arthritis Past Surgical History: Reports: Hx Abdominal Surgery - hiatal hernia repair, Hx Hysterectomy, Hx Orthopedic Surgery - L Knee - Immunizations Hx Diphtheria, Pertussis, Tetanus Vaccination: No Physical Exam - Vital signs Vitals: Temp Pulse Resp BP Pulse Ox 97.6 F 113 H 18 134/73 H 94 09/28/18 13:29 09/28/18 13:29 09/28/18 13:29 09/28/18 13:29 09/28/18 13:29 - Skin Skin Color: Ecchymosis - Multiple ecchymotic areas to left shoulder, right thoracic back area, right upper extremity Course - Vital Signs Vital signs: Temp Pulse Resp BP Pulse Ox 97.6 F 113 H 18 134/73 H 94 09/28/18 13:29 09/28/18 13:29 09/28/18 13:29 09/28/18 13:29 09/28/18 13:29 Doctor's Discharge - Discharge Referrals: CLAUDIO FARLEY PA-C [Primary Care Provider] - Follow up as needed
[2018-09-28 16:07] LABS: APPEARANCE,URINE CLEAR; BILIRUBIN,URINE NEGATIVE (NEGATIVE); COLOR,URINE YELLOW; GLUCOSE, URINE NEGATIVE (NEGATIVE); KETONES,URINE NEGATIVE (NEGATIVE); LEUKOCYTE ESTERASE,URINE NEGATIVE (NEGATIVE); NITRITE,URINE NEGATIVE (NEGATIVE); PROTEIN,URINE NEGATIVE (NEGATIVE); URINE SPECIFIC GRAVITY 1.025; UROBILINOGEN,URINE NEGATIVE mg/dL (<2.0)
--- NOTE | 2018-09-28 16:18 | RADIOLOGY REPORT (SQ) ---
EXAM DESCRIPTION: FOREARM RIGHT COMPLETED DATE/TIME: 09/28/2018 4:08 pm REASON FOR STUDY: fall COMPARISON: None. NUMBER OF VIEWS: Two views. TECHNIQUE: Two radiographic images acquired of the right forearm, including elbow and wrist in at le ast one projection. LIMITATIONS: None. FINDINGS: MINERALIZATION: Normal. BONES: No acute fracture. No worrisome bone lesions. SOFT TISSUES: No obvious swelling or foreign body. OTHER: No other significant finding. IMPRESSION: NEGATIVE STUDY OF THE RIGHT FOREARM. NO RADIOGRAPHIC EVIDENCE OF ACUTE INJURY. TECHNICAL DOCUMENTATION: JOB ID: [id number] [employer]- All Rights Reserved Reading location - IP/workstation name: [facility]-[email or web address]
--- NOTE | 2018-09-28 16:19 | RADIOLOGY REPORT (SQ) ---
EXAM DESCRIPTION: HAND RIGHT 3 VIEWS COMPLETED DATE/TIME: 09/28/2018 4:08 pm REASON FOR STUDY: fall COMPARISON: None. EXAM PARAMETERS: NUMBER OF VIEWS: Three views. TECHNIQUE: AP, lateral and oblique radiographic images acquired of the right hand. LIMITATIONS: None. FINDINGS: MINERALIZATION: Normal. BONES: No acute fracture or dislocation. No worrisome bone lesions. JOINTS: No effusions. SOFT TISSUES: No soft tissue swelling. No foreign body. OTHER: No other significant finding. IMPRESSION: NEGATIVE STUDY OF THE RIGHT HAND. NO RADIOGRAPHIC EVIDENCE OF ACUTE INJURY. TECHNICAL DOCUMENTATION: JOB ID: [id number] [employer]- All Rights Reserved Reading location - IP/workstation name: [facility]-[email or web address]
--- NOTE | 2018-09-28 16:20 | RADIOLOGY REPORT (SQ) ---
EXAM DESCRIPTION: SHOULDER BILAT 2 OR MORE VIEWS COMPLETED DATE/TIME: 09/28/2018 4:08 pm REASON FOR STUDY: fall COMPARISON: None. NUMBER OF VIEWS: Six views. TECHNIQUE: Internal rotation, external rotation, and Y view images acquired of the right and left sh oulder. LIMITATIONS: None. FINDINGS: MINERALIZATION: Normal. BONES: No acute fracture or dislocation. No worrisome bone lesions. JOINTS: No dislocation. VISUALIZED LUNGS AND RIBS: No pneumothorax. No rib fracture. SOFT TISSUES: No radiopaque foreign body. OTHER: No other significant finding. IMPRESSION: NO RADIOGRAPHIC EVIDENCE OF ACUTE INJURY. TECHNICAL DOCUMENTATION: JOB ID: [id number] [employer]- All Rights Reserved Reading location - IP/workstation name: [email or web address]
--- NOTE | 2018-09-28 16:20 | RADIOLOGY REPORT (SQ) ---
EXAM DESCRIPTION: T SPINE AP/LAT COMPLETED DATE/TIME: 09/28/2018 4:08 pm REASON FOR STUDY: fall COMPARISON: None. NUMBER OF VIEWS: Two views. TECHNIQUE: AP and lateral radiographic images acquired of the thoracic spine. LIMITATIONS: None. FINDINGS: MINERALIZATION: Normal. ALIGNMENT: Moderate sigmoid scoliosis. VERTEBRAE: No fracture or bone lesion. Maintained height, normal segmentation. DISCS: Multilevel disc space narrowing with osteophytes. HARDWARE: None in the spine. MEDIASTINUM AND SOFT TISSUES: Normal heart size and aortic contour. No soft tissue abnormality. VISUALIZED LUNG DIAL: Clear. OTHER: No other significant finding. IMPRESSION: SPONDYLOSIS WITHOUT BONE LESION OR FRACTURE. TECHNICAL DOCUMENTATION: JOB ID: [id number] [employer]- All Rights Reserved Reading location - IP/workstation name: [email or web address]
--- NOTE | 2018-09-28 16:22 | RADIOLOGY REPORT (SQ) ---
EXAM DESCRIPTION: L SPINE WHOLE COMPLETED DATE/TIME: 09/28/2018 4:08 pm REASON FOR STUDY: fall COMPARISON: None. NUMBER OF VIEWS: Five views including obliques. TECHNIQUE: AP, lateral, oblique, and sacral radiographic images acquired of the lumbar spine. LIMITATIONS: None. FINDINGS: MINERALIZATION: Normal. SEGMENTATION: Normal. No transitional anatomy. ALIGNMENT: Mild convex right scoliosis. VERTEBRAE: Maintained height. No fracture or worrisome bone lesion. DISCS: Multilevel disc space narrowing with osteophytes. POSTERIOR ELEMENTS: Pedicles and facets are intact. No pars defect or posterior arch defects. Facet arthropathy is present. HARDWARE: None in the spine. PARASPINAL SOFT TISSUES: Normal. PELVIS: Intact as visualized. No fractures or worrisome bone lesions. SI joints intact. OTHER: No other significant finding. IMPRESSION: SPONDYLOSIS WITHOUT BONE LESION OR FRACTURE. TECHNICAL DOCUMENTATION: JOB ID: [id number] [employer]- All Rights Reserved Reading location - IP/workstation name: [facility]-[email or web address]
--- NOTE | 2018-09-28 16:23 | RADIOLOGY REPORT (SQ) ---
EXAM DESCRIPTION: CT HEAD WITHOUT COMPLETED DATE/TIME: 09/28/2018 4:14 pm REASON FOR STUDY: fall, head injury COMPARISON: None. TECHNIQUE: Axial images acquired through the brain without intravenous contrast. Images reviewed wi th bone, brain and subdural windows. Additional sagittal and coronal reconstructions were generated. Images stored on PACS. All CT scanners at this facility use dose modulation, iterative reconstruction, and/or weight based d osing when appropriate to reduce radiation dose to as low as reasonably achievable (ALARA). [facility]: Dose Right [facility]: CareDose [facility]: Dose Right [facility]: Teradose 4D [facility]: [employer] RADIATION DOSE: CT Rad equipment meets quality standard of care and radiation dose reduction techniq ues were employed. CTDIvol: 53.2 mGy. DLP: 911 mGy-cm.mGy. LIMITATIONS: None. FINDINGS: VENTRICLES: Prominent. CEREBRUM: No masses. No hemorrhage. No midline shift. 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 Areas o f low density in the white matter most likely due to chronic micro-vascular ischemic change. No evid ence for acute infarction. CEREBELLUM: No masses. No hemorrhage. No alteration of density. No evidence for acute infarction. EXTRAAXIAL SPACES: Age-related involutional change. No fluid collections. No masses. ORBITS AND GLOBE: No intra- or extraconal masses. Normal contour of globe without masses. CALVARIUM: No fracture. PARANASAL SINUSES: No fluid or mucosal thickening. SOFT TISSUES: No mass or hematoma. OTHER: No other significant finding. IMPRESSION: CHRONIC CHANGES OF ATROPHY AND MICROVASCULAR ISCHEMIA. NO ACUTE PROCESS. EVIDENCE OF ACUTE STROKE: NO. TECHNICAL DOCUMENTATION: JOB ID: [id number] Quality ID # [id number]: Final reports with documentation of one or more dose reduction techniques (e.g., Au tomated exposure control, adjustment of the mA and/or kV according to patient size, use of iterative reconstruction technique) 2010 [employer]- All Rights Reserved Reading location - IP/workstation name: [email or web address]
--- NOTE | 2018-09-28 16:25 | RADIOLOGY REPORT (SQ) ---
EXAM DESCRIPTION: CT CERVICAL SPINE WITHOUT COMPLETED DATE/TIME: 09/28/2018 4:14 pm REASON FOR STUDY: fall COMPARISON: None. TECHNIQUE: Axial images acquired through the cervical spine without intravenous contrast. Images re viewed with lung, soft tissue and bone windows. Reconstructed coronal and sagittal MPR images review ed. Images stored on PACS. All CT scanners at this facility use dose modulation, iterative reconstruction, and/or weight based d osing when appropriate to reduce radiation dose to as low as reasonably achievable (ALARA). [facility]: Dose Right [facility]: CareDose [facility]: Dose Right [facility]: Teradose 4D [facility]: [employer] RADIATION DOSE: CT Rad equipment meets quality standard of care and radiation dose reduction techniq ues were employed. CTDIvol: 20.7 mGy. DLP: 422 mGy-cm. mGy. LIMITATIONS: None. FINDINGS: ALIGNMENT: Anatomic. MINERALIZATION: Normal. VERTEBRAL BODIES: No fractures or dislocation. DISCS: Multilevel disc space narrowing with osteophytes. FACETS, LATERAL MASSES, POSTERIOR ELEMENTS: Facet arthropathy. No fractures. No dislocation. No ac king salmon findings. HARDWARE: None in the spine. VISUALIZED RIBS: No fractures. LUNG APICES AND SOFT TISSUES: No significant or acute findings. OTHER: No other significant finding. IMPRESSION: CHRONIC DEGENERATIVE CHANGES. NO ACUTE FINDINGS. TECHNICAL DOCUMENTATION: JOB ID: [id number] Quality ID # [id number]: Final reports with documentation of one or more dose reduction techniques (e.g., Au tomated exposure control, adjustment of the mA and/or kV according to patient size, use of iterative reconstruction technique) 2010 [employer]- All Rights Reserved Reading location - IP/workstation name: [email or web address]
[2018-09-28 17:31] LABS: ABSOLUTE BASOPHILS # (AUTO) 0.1 10^3/uL (0.0-0.2); ABSOLUTE EOSINOPHILS # (AUTO) 0.5 10^3/uL (0.0-0.6); ABSOLUTE LYMPHOCYTES (AUTO) 2.8 10^3/uL (0.5-4.7); ABSOLUTE MONOCYTES (AUTO) 1.2 10^3/uL (0.1-1.4); BASOPHILS % (AUTO) 0.5 % (0-2); EOSINOPHILS % (AUTO) 3.3 % (0-6); HEMATOCRIT 32.7 % (36.0-47.0); HEMOGLOBIN 11.1 g/dL (12.0-15.5); LYMPHOCYTES % (AUTO) 19.1 % (13-45); MEAN CORPUSCULAR HEMOGLOBIN 29.7 pg (27.0-33.4); MEAN CORPUSCULAR HGB CONC 33.8 g/dL (32.0-36.0); MEAN CORPUSCULAR VOLUME 88 fl (80-97); MONOCYTES % (AUTO) 8.4 % (3-13); PLATELET COUNT 255 10^3/uL (150-450); RED BLOOD COUNT 3.73 10^6/uL (3.72-5.28); RED CELL DISTRIBUTION WIDTH 13.6 % (11.5-14.0); SEGMENTED NEUTROPHILS % (AUTO) 68.7 % (42-78); TOTAL CELLS COUNTED % (AUTO) 100 %; WHITE BLOOD COUNT 14.5 10^3/uL (4.0-10.5)
[2018-09-28] MEDS ORDERED: HYDROMORPHONE HCL INJ/PF 2 MG/ML AMPULE IM ONE (17:48)
[2018-09-28 17:52] LABS: ALANINE AMINOTRANSFERASE 23 U/L (9-52); ALBUMIN 3.4 g/dL (3.5-5.0); ALKALINE PHOSPHATASE 77 U/L (38-126); ANION GAP 11 (5-19); ASPARTATE AMINO TRANSFERASE 32 U/L (14-36); BILIRUBIN,DIRECT 0.3 mg/dL (0.0-0.4); BILIRUBIN,TOTAL 0.4 mg/dL (0.2-1.3); BLOOD UREA NITROGEN 43 mg/dL (7-20); CALCIUM 9.6 mg/dL (8.4-10.2); CARBON DIOXIDE 26 mmol/L (22-30); CHLORIDE 105 mmol/L (98-107); GLUCOSE 135 mg/dL (75-110); POTASSIUM 3.1 mmol/L (3.6-5.0); SODIUM 141.6 mmol/L (137-145); TOTAL PROTEIN 6.2 g/dL (6.3-8.2)
--- NOTE | 2018-09-28 17:58 | ER Document Report ---
ED General - General Stated Complaint: FALL/ARM PAIN Time Seen by Provider: 09/28/18 14:58 Mode of Arrival: Ambulatory Information source: Patient, Friend, [facility] Records Notes: 77-year-old female presents for the third time in 2 weeks with complaints of left upper extremity pain and left hip pain. Patient was seen on September 25, 2018 after a slip and fall. Patient states she fell again 2 days ago and struck her head. Patient states that the reason she falls is because of her service dog running in between her legs. She denies loss of consciousness. Patient was diagnosed with a fractured wrist at that time and has been seen by Dr. Ojeda orthopedic surgeon since then. She states that she had her medications laid out on her table without the tops on them including her pain medication and she states that they fell to the floor and got wet. Patient denies fever, chills, nausea, vomiting. She does have an upcoming appointment with Dr. Fisher on October 12, 2017. TRAVEL OUTSIDE OF THE [place] IN LAST 30 DAYS: No - HPI Onset: Other Onset/Duration: Persistent Quality of pain: Throbbing Severity: Moderate Associated symptoms: denies: Chest pain, Fever, Nausea, Vomiting, Shortness of breath Exacerbated by: Movement Relieved by: Denies Similar symptoms previously: Yes Recently seen / treated by doctor: Yes - Related Data Allergies/Adverse Reactions: morphine [Morphine] Allergy (Mild, Verified 09/28/18 14:45) itching Past Medical History - General Information source: Patient - Social History Smoking Status: Never Smoker Chew tobacco use (# tins/day): No Frequency of alcohol use: None Drug Abuse: None Lives with: Alone Family History: Reviewed & Not Pertinent Patient has suicidal ideation: No Patient has homicidal ideation: No - Past Medical History Cardiac Medical History: Reports: Hx Hypercholesterolemia, Hx Hypertension Neurological Medical History: Reports: Hx Migraine - chronic ARAGON Endocrine Medical History: Reports: Hx Diabetes Mellitus Type 2 Renal/ Medical History: Denies: Hx Peritoneal Dialysis GI Medical History: Reports: Hx Gastroesophageal Reflux Disease Musculoskeletal Medical History: Reports Hx Arthritis Past Surgical History: Reports: Hx Abdominal Surgery - hiatal hernia repair, Hx Hysterectomy, Hx Orthopedic Surgery - L Knee - Immunizations Hx Diphtheria, Pertussis, Tetanus Vaccination: No Review of Systems - Review of Systems Constitutional: denies: Fever, Weakness EENT: denies: Blurred vision Cardiovascular: denies: Chest pain Respiratory: denies: Cough, Short of breath Gastrointestinal: denies: Abdominal pain, Nausea, Vomiting Genitourinary: denies: Flank pain Musculoskeletal: Back pain, Joint pain, Joint swelling Skin: Lesions, Rash Hematologic/Lymphatic: Easy bruising Neurological/Psychological: denies: Confusion, Lost consciousness, Headaches -: Yes All other systems reviewed and negative Physical Exam - Vital signs Vitals: Temp Pulse Resp BP Pulse Ox 97.6 F 113 H 18 134/73 H 94 09/28/18 13:29 09/28/18 13:29 09/28/18 13:29 09/28/18 13:29 09/28/18 13:29 Interpretation: Tachycardic - Notes Notes: PHYSICAL EXAMINATION: GENERAL: Well-appearing, well-nourished and in no acute distress. HEAD: Atraumatic, normocephalic. EYES: Pupils equal round and reactive to light, extraocular movements intact, conjunctiva are normal. ENT: Nares patent, oropharynx clear without exudates. Moist mucous membranes. NECK: Normal range of motion, supple without lymphadenopathy LUNGS: Breath sounds clear to auscultation bilaterally and equal. No wheezes rales or rhonchi. HEART: Regular rate and rhythm without murmurs ABDOMEN: Soft, nontender, nondistended abdomen. No guarding, no rebound. No masses appreciated. Female : deferred Musculoskeletal: Normal range of motion, no pitting or edema. No cyanosis. Left upper extremity with cast in place. Compartments soft. Left elbow skin tear with granulation tissue, no surrounding area edema or warmth. NEUROLOGICAL: Cranial nerves grossly intact. Normal speech, normal gait. Normal sensory, motor exams PSYCH: Normal mood, normal affect. SKIN: Warm, Dry, normal turgor, no rashes or lesions noted. Course - Re-evaluation Re-evalutation: Cervical Spine CT 09/28/18 14:58 IMPRESSION: CHRONIC DEGENERATIVE CHANGES. NO ACUTE FINDINGS. Head CT 09/28/18 14:58 IMPRESSION: CHRONIC CHANGES OF ATROPHY AND MICROVASCULAR ISCHEMIA. NO ACUTE PROCESS. EVIDENCE OF ACUTE STROKE: NO. Forearm X-Ray 09/28/18 14:59 IMPRESSION: NEGATIVE STUDY OF THE RIGHT FOREARM. NO RADIOGRAPHIC EVIDENCE OF ACUTE INJURY. Hand X-Ray 09/28/18 14:59 IMPRESSION: NEGATIVE STUDY OF THE RIGHT HAND. NO RADIOGRAPHIC EVIDENCE OF ACUTE INJURY. Lumbar Spine X-Ray 09/28/18 14:59 IMPRESSION: SPONDYLOSIS WITHOUT BONE LESION OR FRACTURE. Shoulder X-Ray 09/28/18 14:59 IMPRESSION: NO RADIOGRAPHIC EVIDENCE OF ACUTE INJURY. Thoracic Spine X-Ray 09/28/18 14:59 IMPRESSION: SPONDYLOSIS WITHOUT BONE LESION OR FRACTURE. 09/29/18 00:08 77-year-old female presents with complaint of left upper extremity pain. Patient had a fall previously and was seen in the emergency department where she was diagnosed with a distal radius and ulnar fracture. Patient states that her home medications spilled onto the floor and got wet. Patient states that when she called her orthopedic surgeon they stated they were unable to refill her medications at this time. Imaging was ordered by the the provider in triage which included CAT scan of the head which showed no acute process. X-ray of the forearm, hand, lumbar spine, shoulder and thoracic spine that were all without acute injury. I explained to the patient that by law the pharmacist cannot refill a narcotic medication prescription prematurely. I did explain to her that the emergency department does not treat chronic pain and any further pain management would have to be done by her primary care physician or orthopedic surgeon. Patient's left upper extremity skin tear was cleaned, dressed. Patient did receive 1 mg of IV Dilaudid during her ED course. Patient was evaluated and treated as appropriate for the patient's presenting symptoms and complaint, with consideration of any critical or life threatening conditions that may be associated with their obtained history and exam as noted above. All results were discussed with patient. Patient provided the opportunity to ask questions, and express concerns. Patient was educated on treatments based on their presumed diagnosis as noted above. At this time we will discharge the patient with return precautions and follow-up recommendations. Verbal discharge instructions given a the bedside. Medication warnings reviewed. Patient is in agreement with this plan and has verbalized understanding of return precautions. After careful consideration I feel that that patient can be safely discharged from the emergency department, they were advised to followup with a primary care physician in 2-3 days. Dictation on this chart was performed using voice recognition software and may result in unintended grammatical, spelling, syntax or errors. 09/29/18 00:10 09/29/18 00:13 Presentation of head trauma in an otherwise well-appearing patient. No focal neurologic deficits on exam, no evidence of basilar skull fracture on exam without evidence of hemotympanum, raccoon eyes, or periauricular hematoma. No papilledema. Patient is not on anticoagulation. GCS is 15. No loss of consciousness. No episodes of vomiting. Patient is therefore negative via [place] head CT criteria and CT imaging will not be obtained at this time. - Vital Signs Vital signs: Temp Pulse Resp BP Pulse Ox 97.6 F 113 H 18 134/73 H 94 09/28/18 13:29 09/28/18 13:29 09/28/18 13:29 09/28/18 13:29 09/28/18 13:29 - Laboratory Result Diagrams: 09/28/18 17:19 09/28/18 17:19 Laboratory results interpreted by me: 09/28/18 09/28/18 17:19 17:19 WBC 14.5 H Hgb 11.1 L Hct 32.7 L Absolute Neutrophils 10.0 H Potassium 3.1 L BUN 43 H Creatinine 1.70 H Est GFR ( Amer) 35 L Est GFR (Non-Af Amer) 29 L Glucose 135 H Total Protein 6.2 L Albumin 3.4 L - Diagnostic Test Radiology reviewed: Image reviewed, Reports reviewed - Family to - EKG Interpretation by Me EKG shows normal: Sinus rhythm Rate: Normal Rhythm: NSR Discharge - Discharge Clinical Impression: Myalgia, Pain Closed fracture of left distal radius and ulna Qualifiers: Encounter type: subsequent encounter Fracture healing: with routine healing Qualified Code(s): S52.502D - Unspecified fracture of the lower end of left radius, subsequent encounter for closed fracture with routine healing Contusion of left knee Qualifiers: Encounter type: subsequent encounter Qualified Code(s): S80.02XD - Contusion of left knee, subsequent encounter Contusion of left hip Qualifiers: Encounter type: initial encounter Qualified Code(s): S70.02XA - Contusion of left hip, initial encounter Condition: Good Disposition: HOME, SELF-CARE Instructions: Contusion ([facility]), Fractured Radius and Ulna ([facility]), Skin Tear ([facility]) Additional Instructions: The pain medicine you're taking prescribed as a narcotic. There are several important things you should know about this medicine: 1. This medicine contains Tylenol: It is important that you do not take Tylenol (or acetaminophen) while on this medicine. Tylenol is metabolized by the liver and taking too much Tylenol (acetaminophen) can lay to liver damage and even liver failure. 2. Taking narcotics for too long can lead to physical and mental dependence. Take this medicine only if really needed and in the lowest quantity to achieve pain relief. 3. Do not drink alcohol while on this medicine. Alcohol interacts with narcotics and the combination can be dangerous. 4. Do not drive or operate machinery while on this medicine. 5. Narcotics do cause constipation, so drink plenty of fluids and daily stool softeners. The emergency department does not treat chronic pain. You need to follow-up with your primary care physician for an orthopedic surgeon for any other pain management you may need. Follow up with your [id number] hours for further care or return to the ED IMMEDIATELY if symptoms worsen or you have any concerns. If you cannot afford to follow up with your primary care physician a list of low cost clinics have been provided at the end of your discharge papers as well. Most prescribed medications have multiple side effects. The safest thing to do is when filling your prescription speak to your pharmacist regarding possible interactions with your normal home medications and over the counter medications such as Ibuprofen, Tylenol, Benadryl. If you experience any symptoms that cause you discomfort or concern you should discontinue the medication immediately and return to the emergency room or call your primary care physician. You have likely sustained a contusion (bruise) to your head. If you had a CT scan done, it did not show any evidence of serious injury or bleeding. Symptoms to expect from a concussion include nausea, mild to moderate headache, difficulty concentrating or sleeping, and mild lightheadedness. These symptoms should improve over the next few days to weeks. Return to the emergency department or follow-up with your primary care doctor if your symptoms are not improving over this time. Signs of a more serious head injury include vomiting, severe headache, excessive sleepiness or confusion, and weakness or numbness in your face, arms or legs. Return immediately to the Emergency Department if you experience any of these more concerning symptoms. Rest, avoid strenuous physical or mental activity, and avoid activities that could potentially result in another head injury until all your symptoms from this head injury are completely resolved for at least 2-3 weeks. If you participate in sports, get cleared by your doctor or application trainer before returning to play. You may take ibuprofen or acetaminophen over the counter according to label instructions for mild headache or scalp soreness. Forms: Elevated Blood Pressure Referrals: CLAUDIO FARLEY PA-C [Primary Care Provider] - Follow up as needed SENG OJEDA DO [ACTIVE STAFF] - Follow up as needed
[2018-09-28] MEDS ORDERED: HYDROCODONE/ACETAMINOPHEN 5-325 MG (6 TAB/ER DISP) PO PRN (18:05)
--- NOTE | 2018-09-29 14:51 | EKG REPORT ---
SEVERITY:- ABNORMAL ECG - SINUS RHYTHM MULTIPLE ATRIAL PREMATURE COMPLEXES : Confirmed by: Sylvia Hurst 29-Sep-2018 14:51:28
== END 2018-09-28 19:26 | disposition home or self-care (01) ==
LOC: ER 13:08
DX: S70.02XA Contusion of left hip, initial encounter (principal); S51.012A Laceration without foreign body of left elbow, initial encounter; W19.XXXA Unspecified fall, initial encounter; S52.602D Unspecified fracture of lower end of left ulna, subsequent encounter for closed fracture with routine healing; S52.502D Unspecified fracture of the lower end of left radius, subsequent encounter for closed fracture with routine healing; S80.02XD Contusion of left knee, subsequent encounter; W01.0XXD Fall on same level from slipping, tripping and stumbling without subsequent striking against object, subsequent encounter; M47.9 Spondylosis, unspecified; Z88.5 Allergy status to narcotic agent; I10 Essential (primary) hypertension; E11.9 Type 2 diabetes mellitus without complications; R21 Rash and other nonspecific skin eruption
CPT/HCPCS: 93005; 99284; 96372; 36415; 85025; 80053; 81001; 73090; 73130; 72110; 72070; 73030; 70450; 72125; 93010; J1170; A9270

== ENCOUNTER 2018-12-06 18:02 | Emergency (ER) | payer MEDICARE, MEDICAID ==
--- NOTE | 2018-12-06 19:43 | ER Document Report ---
ED Medical Screen (RME) - General Chief Complaint: Abnormal Lab Results Stated Complaint: ABNORMAL LABS Time Seen by Provider: 12/06/18 19:42 Primary Care Provider: CLAUDIO FARLEY PA-C [Primary Care Provider] - Follow up as needed Notes: 78-year-old female patient emergency department chief complaint of "abnormal labs". Patient was seen by her primary care doctor. Was called today and told to come to the ER because her kidney function was bad. Not on dialysis. No prior history of kidney dysfunction. Patient denies any complaints at this time other than falling all the time. I have greeted and performed a rapid initial assessment of this patient. A comprehensive ED assessment and evaluation of the patient, analysis of test results and completion of the medical decision making process will be conducted by additional ED providers. TRAVEL OUTSIDE OF THE [place] IN LAST 30 DAYS: No - Related Data Allergies/Adverse Reactions: morphine [Morphine] Allergy (Mild, Verified 12/06/18 18:05) itching Past Medical History - Social History Chew tobacco use (# tins/day): No Frequency of alcohol use: None Drug Abuse: None - Past Medical History Cardiac Medical History: Reports: Hx Hypercholesterolemia, Hx Hypertension Neurological Medical History: Reports: Hx Migraine - chronic ARAGON Endocrine Medical History: Reports: Hx Diabetes Mellitus Type 2 Renal/ Medical History: Denies: Hx Peritoneal Dialysis GI Medical History: Reports: Hx Gastroesophageal Reflux Disease Musculoskeltal Medical History: Reports Hx Arthritis Past Surgical History: Reports: Hx Abdominal Surgery - hiatal hernia repair, Hx Hysterectomy, Hx Orthopedic Surgery - L Knee - Immunizations Hx Diphtheria, Pertussis, Tetanus Vaccination: No Physical Exam - Vital signs Vitals: Temp Pulse Resp BP Pulse Ox 98.9 F 86 20 115/66 96 12/06/18 18:11 12/06/18 18:11 12/06/18 18:11 12/06/18 18:11 12/06/18 18:11 Course - Vital Signs Vital signs: Temp Pulse Resp BP Pulse Ox 98.9 F 86 20 115/66 96 12/06/18 18:11 12/06/18 18:11 12/06/18 18:11 12/06/18 18:11 12/06/18 18:11 Doctor's Discharge - Discharge Referrals: CLAUDIO FARLEY PA-C [Primary Care Provider] - Follow up as needed
[2018-12-06 21:03] LABS: ABSOLUTE BASOPHILS # (AUTO) 0.1 10^3/uL (0.0-0.2); ABSOLUTE EOSINOPHILS # (AUTO) 0.4 10^3/uL (0.0-0.6); ABSOLUTE LYMPHOCYTES (AUTO) 2.1 10^3/uL (0.5-4.7); ABSOLUTE MONOCYTES (AUTO) 0.7 10^3/uL (0.1-1.4); ABSOLUTE NEUT (AUTO) 5.3 10^3/uL (1.7-8.2); BASOPHILS % (AUTO) 1.2 % (0-2); EOSINOPHILS % (AUTO) 4.7 % (0-6); HEMATOCRIT 36.4 % (36.0-47.0); HEMOGLOBIN 12.3 g/dL (12.0-15.5); LYMPHOCYTES % (AUTO) 24.9 % (13-45); MEAN CORPUSCULAR HEMOGLOBIN 30.3 pg (27.0-33.4); MEAN CORPUSCULAR VOLUME 89 fl (80-97); MONOCYTES % (AUTO) 7.9 % (3-13); PLATELET COUNT 246 10^3/uL (150-450); RED BLOOD COUNT 4.08 10^6/uL (3.72-5.28); RED CELL DISTRIBUTION WIDTH 13.7 % (11.5-14.0); SEGMENTED NEUTROPHILS % (AUTO) 61.3 % (42-78); TOTAL CELLS COUNTED % (AUTO) 100 %; WHITE BLOOD COUNT 8.6 10^3/uL (4.0-10.5)
[2018-12-06 21:30] LABS: ALANINE AMINOTRANSFERASE 15 U/L (9-52); ALBUMIN 4.6 g/dL (3.5-5.0); ALKALINE PHOSPHATASE 71 U/L (38-126); ANION GAP 13 (5-19); ASPARTATE AMINO TRANSFERASE 37 U/L (14-36); BILIRUBIN,DIRECT 0.4 mg/dL (0.0-0.4); BILIRUBIN,TOTAL 0.5 mg/dL (0.2-1.3); BLOOD UREA NITROGEN 54 mg/dL (7-20); CALCIUM 9.1 mg/dL (8.4-10.2); CARBON DIOXIDE 28 mmol/L (22-30); CHLORIDE 103 mmol/L (98-107); GLUCOSE 123 mg/dL (75-110); POTASSIUM 3.5 mmol/L (3.6-5.0); SODIUM 144.3 mmol/L (137-145); TOTAL PROTEIN 7.5 g/dL (6.3-8.2)
[2018-12-06] MEDS ORDERED: RINGERS SOLUTION,LACTATED 500 ML IV ONE ×2 (22:00→23:04)
[2018-12-06 23:34] LABS: APPEARANCE,URINE SLIGHTLY-CLOUDY; BILIRUBIN,URINE NEGATIVE (NEGATIVE); COLOR,URINE YELLOW; GLUCOSE, URINE NEGATIVE (NEGATIVE); KETONES,URINE NEGATIVE (NEGATIVE); LEUKOCYTE ESTERASE,URINE NEGATIVE (NEGATIVE); NITRITE,URINE NEGATIVE (NEGATIVE); PROTEIN,URINE NEGATIVE (NEGATIVE); URINE SPECIFIC GRAVITY 1.017; UROBILINOGEN,URINE NEGATIVE mg/dL (<2.0)
--- NOTE | 2018-12-07 00:39 | RADIOLOGY REPORT (SQ) ---
EXAM DESCRIPTION: CT ABDOMEN PELVIS WITHOUT IV CONTRAST COMPLETED DATE/TME: 12/06/2018 23:05 CLINICAL HISTORY: 78 years, Female, ABNORMAL RENAL LABS. EVAL FOR ABNORMAL PATHOLOGY. COMPARISON: Prior CT 04/16/2017 TECHNIQUE: 360 Images stored on PACS. All CT scanners at this facility use dose modulation, iterative reconstruction, and/or weight based dosing when appropriate to reduce radiation dose to as low as reasonably achievable (ALARA). [facility]: Dose Right [facility]: CareDose [facility]: Dose Right [facility]: Teradose 4D [facility]: [employer] LIMITATIONS: None. FINDINGS: Limited evaluation of the lung bases is unremarkable. Osseous structures are grossly intact. Dense calcifications associated with bilateral breast prostheses are partially seen. Limited evaluation of the liver, spleen, adrenal glands, pancreas, kidneys are unremarkable. There is a punctate nonobstructing 1 to 2 mm left renal calculus noted. No obstructing calculus or hydronephrosis. Subcentimeter right renal cyst. Moderate atheromatous change. Large amount stool in the colon. No gross evidence for bowel obstruction. No free air or free fluid. IMPRESSION: Negative for acute intra-abdominal/pelvic process. Punctate nonobstructing 1 to 2 mm left renal calculus. Subcentimeter right renal cyst. TECHNICAL DOCUMENTATION: Quality ID # [id number]: Final reports with documentation of one or more dose reduction techniques (e.g., Automated exposure control, adjustment of the mA and/or kV according to patient size, use of iterative reconstruction technique) copyright 2010 [employer]- All Rights Reserved
[2018-12-07 01:02] VITALS: BP 165/83
[2018-12-07 01:09] LABS: ANION GAP 11 (5-19); BLOOD UREA NITROGEN 49 mg/dL (7-20); CALCIUM 8.8 mg/dL (8.4-10.2); CARBON DIOXIDE 28 mmol/L (22-30); CHLORIDE 105 mmol/L (98-107); GLUCOSE 115 mg/dL (75-110); POTASSIUM 3.2 mmol/L (3.6-5.0); SODIUM 143.9 mmol/L (137-145)
--- NOTE | 2018-12-07 04:04 | ER Document Report ---
ED General - General Chief Complaint: Abnormal Lab Results Stated Complaint: ABNORMAL LABS Time Seen by Provider: 12/06/18 19:42 Primary Care Provider: CLAUDIO FARLEY PA-C [NO LOCAL MD] - Follow up as needed Notes: Patient is a 78-year-old female presents to the emergency department via EMS for an increase in her kidney function lab. Patient states she was at her primary care provider recently who wanted routine labs to be drawn. Patient states she had her labs drawn on Tuesday states today her primary care provider called her and told her that her kidney function was elevated and she should return to the emergency room. Patient states she typically drinks 1 L of Coca-Cola a day and typically does not drink any water. Patient states she has no complaints to include chest pain, shortness of breath, abdominal pain, dysuria, flank or back pain. Patient states her only medical problem is diabetes, she is unsure of the medication she takes but does states that she is allergic to morphine. TRAVEL OUTSIDE OF THE [place] IN LAST 30 DAYS: No - Related Data Allergies/Adverse Reactions: morphine [Morphine] Allergy (Mild, Verified 12/06/18 18:05) itching Past Medical History - General Information source: Patient - Social History Smoking Status: Never Smoker Chew tobacco use (# tins/day): No Frequency of alcohol use: None Drug Abuse: None Family History: Reviewed & Not Pertinent Patient has suicidal ideation: No Patient has homicidal ideation: No - Past Medical History Cardiac Medical History: Reports: Hx Hypercholesterolemia, Hx Hypertension Neurological Medical History: Reports: Hx Migraine - chronic ARAGON Endocrine Medical History: Reports: Hx Diabetes Mellitus Type 2 Renal/ Medical History: Denies: Hx Peritoneal Dialysis GI Medical History: Reports: Hx Gastroesophageal Reflux Disease Musculoskeletal Medical History: Reports Hx Arthritis Past Surgical History: Reports: Hx Abdominal Surgery - hiatal hernia repair, Hx Hysterectomy, Hx Orthopedic Surgery - L Knee - Immunizations Hx Diphtheria, Pertussis, Tetanus Vaccination: No Review of Systems - Review of Systems Constitutional: No symptoms reported EENT: No symptoms reported Cardiovascular: No symptoms reported Respiratory: No symptoms reported Gastrointestinal: No symptoms reported Genitourinary: No symptoms reported Female Genitourinary: No symptoms reported Musculoskeletal: No symptoms reported Skin: No symptoms reported Hematologic/Lymphatic: No symptoms reported Neurological/Psychological: No symptoms reported Physical Exam - Vital signs Vitals: Temp Pulse Resp BP Pulse Ox 98.9 F 86 20 115/66 96 12/06/18 18:11 12/06/18 18:11 12/06/18 18:11 12/06/18 18:11 12/06/18 18:11 - Notes Notes: GENERAL: Alert, interacts well. No acute distress. HEAD: Normocephalic, atraumatic. EYES: Pupils equal, round, and reactive to light. Extraocular movements intact. ENT: Oral mucosa moist, tongue midline. NECK: Full range of motion. Supple. Trachea midline. LUNGS: Clear to auscultation bilaterally, no wheezes, rales, or rhonchi. No respiratory distress. HEART: Regular rate and rhythm. No murmur ABDOMEN: Soft, non-tender. Non-distended. Bowel sounds present in all 4 quadrants. EXTREMITIES: Moves all 4 extremities spontaneously. No edema, normal radial and dorsalis pedis pulses bilaterally. No cyanosis. BACK: no cervical, thoracic, lumbar midline tenderness. No saddle anesthesia, normal distal neurovascular exam. No CVA tenderness noted bilaterally NEUROLOGICAL: Alert and oriented x3. Normal speech. cranial nerves II through XII grossly intact PSYCH: Normal affect, normal mood. SKIN: Warm, dry, normal turgor. No rashes or lesions noted. Course - Re-evaluation Re-evalutation: Lab results the patient has with her show a BUN of 45, creatinine 3.21, GFR of 13. Patient's labs in the emergency department reveals no signs of leukocytosis, no signs of anemia. Patient's BUN creatinine and GFR are 54 2.79 and 16 respectively. Patient's urine shows no signs of infection. Patient's CT of her abdomen pelvis shows a left renal calculus and a right renal cyst. No signs of obstruction at this time. Patient was given 1 L of fluid in the emergency de partment repeat labs show a BUN of 49, creatinine of 2.30, GFR of 21. Patient's labs do seem to be improving after fluid hydration. Discussed this at length with patient at bedside. Discussed that I would like to admit her to the hospital for continued fluid resuscitation and observation of her kidney function. Patient is adamant that she needs to get home to her dogs. States she will follow-up with her primary care provider in the morning and drink only water until then. Discussed that I would like her to sign an AGAINST MEDICAL ADVICE form if she would like to leave the hospital at this time. Patient voices understanding and signs AGAINST MEDICAL ADVICE. I told the pt. that she may if she leaves the hospital and she still wants to leave. Discussed with her that she needs to follow-up with her primary care provider or return to the emergency room for any other concerning symptoms. - Vital Signs Vital signs: Temp Pulse Resp BP Pulse Ox 98.9 F 86 15 165/83 H 100 12/06/18 18:11 12/06/18 18:11 12/07/18 01:00 12/07/18 00:00 12/07/18 01:00 - Laboratory Result Diagrams: 12/06/18 20:50 12/07/18 00:45 Laboratory results interpreted by me: 12/06/18 12/07/18 20:50 00:45 Potassium 3.5 L 3.2 L BUN 54 H 49 H Creatinine 2.79 H 2.30 H Est GFR ( Amer) 20 L 25 L Est GFR (Non-Af Amer) 16 L 21 L Glucose 123 H 115 H AST 37 H Discharge - Discharge Clinical Impression: Acute kidney injury Disposition: AGAINST MEDICAL ADVICE Referrals: CLAUDIO FARLEY PA-C [NO LOCAL MD] - Follow up as needed
== END 2018-12-07 02:38 | disposition left against medical advice (07) ==
LOC: ER 18:02
DX: N17.9 Acute kidney failure, unspecified (principal); N20.0 Calculus of kidney; Q61.01 Congenital single renal cyst; I10 Essential (primary) hypertension; E11.9 Type 2 diabetes mellitus without complications; Z88.5 Allergy status to narcotic agent; Z53.29 Procedure and treatment not carried out because of patient's decision for other reasons
CPT/HCPCS: 99284; 96360; 96361; 36415; 85025; 80048; 80053; 81001; 74176; J7120

== ENCOUNTER 2018-12-07 03:29 | Emergency (ER) | payer MEDICARE, MEDICAID ==
[2018-12-07 03:37] VITALS: BP 170/110
--- NOTE | 2018-12-07 04:47 | ER Document Report ---
ED General - General Chief Complaint: Flank Pain Stated Complaint: FLANK PAIN Time Seen by Provider: 12/07/18 04:14 TRAVEL OUTSIDE OF THE [place] IN LAST 30 DAYS: No - HPI Notes: Patient is a 78-year-old female that presents to the emergency department for chief complaint of renal failure. Patient had routine lab testing done by her primary care physician and was told to come to the emergency room for renal failure. Patient was in the emergency room earlier today and was recommended to be admitted to the hospital. She states that she did not want to leave her dog at home which is why she left. Patient returned with her dog and is now here for further management. She denies any symptoms including chest pain, shortness of breath, abdominal pain, nausea, vomiting, dysuria, syncope and lightheadedness. Past Medical History: Reviewed in chart Past Surgical History: Reviewed in chart Social History: Reviewed in chart Family History: Reviewed and noncontributory for presenting illness Allergies: Reviewed, see documented allergy list. REVIEW OF SYSTEMS: CONSTITUTIONAL : No fever No chills No diaphoresis No recent illness EENT: No vision changes No congestion No sore throat CARDIOVASCULAR: No chest pain No palpitations RESPIRATORY: No shortness of breath No cough No difficulty breathing GASTROINTESTINAL: No abdominal pain No nausea No vomiting No diarrhea GENITOURINARY: No dysuria No hematuria No difficulty urinating MUSCULOSKELETAL: No back pain No leg pain No arm pain SKIN: No rashes No lesions LYMPHATIC: No swollen, enlarged glands. NEUROLOGICAL: No lightheadedness No headache No weakness No paresthesias PSYCHIATRIC: No anxiety No depression PHYSICAL EXAMINATION: Vital signs reviewed, nursing noted reviewed. GENERAL: Well-appearing, well-nourished and in no acute distress. HEAD: Atraumatic, normocephalic. EYES: Eyes appear normal, extraocular movements intact, sclera anicteric, conjunctiva are normal. ENT: nares patent, oropharynx clear without exudates. Moist mucous membranes. NECK: Normal range of motion, supple without lymphadenopathy LUNGS: Breath sounds clear to auscultation bilaterally and equal. No wheezes rales or rhonchi. HEART: Regular rate and rhythm without murmurs ABDOMEN: Soft, nontender, normoactive bowel sounds. No rebound, guarding, or rigidity. No masses appreciated. EXTREMITIES: Nontender, good range of motion, no pitting or edema. NEUROLOGICAL: No focal neurological deficits. Moves all extremities spontaneously Motor and sensory grossly intact on exam. PSYCH: Normal mood, normal affect. SKIN: Warm, Dry, normal turgor, no rashes or lesions noted on exposed skin - Related Data Allergies/Adverse Reactions: morphine [Morphine] Allergy (Mild, Verified 12/06/18 18:05) itching Past Medical History - Social History Smoking Status: Current Every Day Smoker Family History: Reviewed & Not Pertinent Patient has suicidal ideation: No Patient has homicidal ideation: No - Past Medical History Cardiac Medical History: Reports: Hx Hypercholesterolemia, Hx Hypertension Neurological Medical History: Reports: Hx Migraine - chronic ARAGON Endocrine Medical History: Reports: Hx Diabetes Mellitus Type 2 Renal/ Medical History: Denies: Hx Peritoneal Dialysis GI Medical History: Reports: Hx Gastroesophageal Reflux Disease Musculoskeletal Medical History: Reports Hx Arthritis Past Surgical History: Reports: Hx Abdominal Surgery - hiatal hernia repair, Hx Hysterectomy, Hx Orthopedic Surgery - L Knee - Immunizations Hx Diphtheria, Pertussis, Tetanus Vaccination: No Physical Exam - Vital signs Vitals: Temp Pulse Resp BP Pulse Ox 98.9 F 97 18 170/110 H 97 12/07/18 03:29 12/07/18 03:29 12/07/18 03:29 12/07/18 03:29 12/07/18 03:29 Course - Re-evaluation Re-evalutation: 12/07/18 04:45 Vitals reviewed. Nursing notes reviewed. Patient is alert, oriented and in no acute distress. She is currently asymptomatic. I reviewed her lab work from 4 hours ago. Her renal insufficiency was improving after IV hydration. Patient was recommended to be admitted to the hospital but left AGAINST MEDICAL ADVICE. She returned with her "service dog". The dog is a 2 while while that has been aggressive towards myself and nursing staff. Patient does not have any documentation for the dog to suggest he is a registered certified animal. Because his aggression towards staff and lack of documentation of service animal it was advised that patient not be able to keep him in the hospital during her admission. Patient states that she does not want to be admitted to the hospital without her dog and would like to leave AGAINST MEDICAL ADVICE again. I advised that she follow with her primary care doctor today or tomorrow for close outpatient reevaluation. We had a long discussion regarding stopping caff einated beverages and increasing intake of water to prevent further dehydration. Patient has capacity to make medical decisions. She understands the risk of leaving AGAINST MEDICAL ADVICE. She was encouraged to return to the emergency room at any point in time for further reevaluation. - Vital Signs Vital signs: Temp Pulse Resp BP Pulse Ox 98.9 F 97 18 170/110 H 97 12/07/18 03:29 12/07/18 03:29 12/07/18 03:29 12/07/18 03:29 12/07/18 03:29 Discharge - Discharge Clinical Impression: ANGELICA (acute kidney injury), Dehydration Condition: Stable Disposition: AGAINST MEDICAL ADVICE Additional Instructions: It was advised that he be admitted to the hospital for kidney failure and dehydration today. Your kidney function was elevated today. After receiving IV fluids her kidney function did improve, this suggest that you are likely dehydrated. I advised to stop drinking caffeinated beverages to prevent further dehydration. Increase your intake of water. Follow with your primary care doctor today or tomorrow for close outpatient reevaluation of your kidney function
[2018-12-07 04:52] LABS: APPEARANCE,URINE CLEAR; BILIRUBIN,URINE NEGATIVE (NEGATIVE); COLOR,URINE YELLOW; GLUCOSE, URINE NEGATIVE (NEGATIVE); KETONES,URINE NEGATIVE (NEGATIVE); LEUKOCYTE ESTERASE,URINE NEGATIVE (NEGATIVE); NITRITE,URINE NEGATIVE (NEGATIVE); PROTEIN,URINE NEGATIVE (NEGATIVE); URINE SPECIFIC GRAVITY 1.012; UROBILINOGEN,URINE NEGATIVE mg/dL (<2.0)
== END 2018-12-07 05:12 | disposition left against medical advice (07) ==
LOC: ER 03:29
DX: N17.9 Acute kidney failure, unspecified (principal); E86.0 Dehydration; R10.9 Unspecified abdominal pain; F17.200 Nicotine dependence, unspecified, uncomplicated; I10 Essential (primary) hypertension; E11.9 Type 2 diabetes mellitus without complications
CPT/HCPCS: 81001; 99283

== ENCOUNTER → 2019-09-20 | Day surgery (SDC) | payer MEDICARE, MEDICAID ==
[~2019-09-20] MED LIST changes: +LIDOCAINE 1% INJ-PF (10 MG/ML) 30 ML SDV ONE
--- NOTE | 2019-09-20 10:27 | Operative Report ---
PROCEDURE: KNEE RADIOFREQUENCY bilateral under ultrasound guidance Preoperative Diagnosis: Bilateral knee osteoarthritis Postoperative Diagnosis: Bilateral knee osteoarthritis 1. Superolateral genicular branch from the vastus lateralis 2. Superomedial genicular branch from the vastus medialis 3. Inferomedial genicular branch from the saphenous nerve 4. Medial retinacular branch from the vastus intermedius DATE OF PROCEDURE: September 20, 2018 ANESTHESIA: Local anesthesia COMPLICATIONS: None reported PROCEDURE IN DETAIL: Hx/PE/meds/allergies/applicable labs reviewed. No changes and no contraindications were found. Full description of the procedure was provided including benefits as well as possible complications including transient increased pain, stomach irritation, mood alteration, transient weakness or parasthesias as well as more serious nerve injury, bleeding, infection or allergic reaction. Informed consent was obtained and documented. The patient was brought to the procedure room and placed on the exam table in a comfortable supine position. The place for needle placement was obtained by manual palpation with ultrasound confirmation. The sterile field was prepared by chloroprep and sterile drapes. Local anesthesia superficial and deep was provided by local infiltration of 2% lidocaine. A 17g 100 mm radiofrequency introducer needle with a 4 mm active tip was placed overlying the bilateral knee joint and using ultrasound guidance the needle was advanced to a bony endpoint on the superiolateral portion of the femoral condyle of the bilateral knee. A second needle was advanced to a bony endpoint on the superiomedial portion of the femoral condyle. A third needle was then placed over the inferiomedial portion of the tibial condyle until a bony endpoint was met. 4th needle placed 3mm above the patella with the tip in contact with the Medial retinacular branch from the vastus intermedius. Attempted aspiration yielded no blood. Transverse ultrasound views showed all the needles at 50% depth of the femur and tibia. Motor stimulation was tested at 2.0 volts with no leg movement. Images were saved in AP and lateral. A mixture consisting of 0.5% bupivacaine was slowly injected. Then a radiofrequency ablation of each of the geniculate nerves were done at 80 degrees Celsius for 2 minutes and 30 seconds each. The needles were withdrawn. The patient tolerated the procedure well. After observation the patient was discharged with instructions and follow up. They were also provided contact information to call regarding any concerning sym ptoms or questions. IMPRESSION: 1. Successful geniculate bilateral knee radiofrequency ablation was performed. 2. The patient was given prescription of home medicines. 3. RTC in 1-2 week(s).
== END ==
LOC: RAD 10:30
PROVIDERS: ATTEND Family Medicine
DX: M17.0 Bilateral primary osteoarthritis of knee (principal)
CPT/HCPCS: 64640 ×4; J3490 ×2

== ENCOUNTER → 2019-11-06 | Outpatient (CLI) | payer MEDICARE, MEDICAID | LOC: SP 15:08 | PROVIDERS: ATTEND Physician Assistant | DX: M79.605 Pain in left leg (principal) | CPT/HCPCS: 93922 ==

== ENCOUNTER 2020-09-22 02:47 | Emergency (ER) | payer MEDICARE, MEDICAID ==
--- NOTE | 2020-09-22 04:27 | RADIOLOGY REPORT (SQ) ---
EXAM DESCRIPTION: KNEE RIGHT 2 VIEWS [facility]: XR KNEE 1-2 VIEWS Views: 2 CLINICAL HISTORY: 79 years Female; bone pain; COMPARISON: 09/25/2018 FINDINGS: Severe chronic degenerative changes are again noted. There is severe patellofemoral narrowing with reactive osteophyte formation. Small joint effusion. Chondrocalcinosis is noted. Sclerosis and mild remodeling of the medial femoral condyle and medial tibial plateau, with severe joint space narrowing. No acute fracture. No suspicious lytic or blastic lesions. IMPRESSION: 1. Severe chronic degenerative changes 2. No acute fracture
[2020-09-22] MEDS ORDERED: DEXAMETHASONE SOD PHOS INJ 10 MG/1 ML VIAL IM ONE (05:10)
--- NOTE | 2020-09-22 05:14 | ER Document Report ---
HPI - HPI Time Seen by Provider: 09/22/20 04:50 Pain Level: 5 Context: Patient is a 79-year-old female with a history of hypertension diabetes who presents the emergency department with bilateral knee pain, with mainly the right hurting more tonight. Patient states that 30 years ago she was riding a pool and fell off and hurt both her knees. Patient states that she ended up falling tonight and hurt her right knee. She is able to walk. Denies any calf pain. Denies any upper leg pain. - ROS Systems Reviewed and Negative: Yes All other systems reviewed and negative - CONSTITUTIONAL Constitutional: DENIES: Fever, Chills - RESPIRATORY Respiratory: DENIES: Trouble Breathing, Coughing - GASTROINTESTINAL Gastrointestinal: DENIES: Abdominal Pain, Nausea, Patient vomiting - REPRODUCTIVE Reproductive: DENIES: : - MUSCULOSKELETAL Musculoskeletal: REPORTS: Extremity pain. DENIES: Swelling - DERM Skin Color: Normal Skin Problems: None Past Medical History - General Information source: Patient - Social History Smoking Status: Never Smoker Frequency of alcohol use: None Family History: Reviewed & Not Pertinent - Past Medical History Cardiac Medical History: Reports: Hx Hypercholesterolemia, Hx Hypertension Neurological Medical History: Reports: Hx Migraine - chronic ARAGON Endocrine Medical History: Reports: Hx Diabetes Mellitus Type 2 Renal/ Medical History: Denies: Hx Peritoneal Dialysis GI Medical History: Reports: Hx Gastroesophageal Reflux Disease Musculoskeletal Medical History: Reports Hx Arthritis Past Surgical History: Reports: Hx Abdominal Surgery - hiatal hernia repair, Hx Hysterectomy, Hx Orthopedic Surgery - L Knee - Immunizations Hx Diphtheria, Pertussis, Tetanus Vaccination: No Vertical Provider Document - CONSTITUTIONAL Agree With Documented VS: Yes Exam Limitations: No Limitations General Appearance: No Apparent Distress - INFECTION CONTROL TRAVEL OUTSIDE OF THE [place] IN LAST 30 DAYS: No - HEENT HEENT: Atraumatic, Normocephalic, PERRLA - NECK Neck: Normal Inspection - RESPIRATORY Respiratory: No Respiratory Distress - CARDIOVASCULAR Pulses: Normal: Posterior tibial, Dorsalis pedis - MUSCULOSKELETAL/EXTREMETIES Musculoskeletal/Extremeties: FROM, Tender - right knee - NEURO Level of Consciousness: Awake, Alert, Appropriate Motor/Sensory: No Motor Deficit, No Sensory Deficit - DERM Integumentary: Warm, Dry, No Rash Course - Re-evaluation Re-evalutation: 09/22/20 05:11 Right knee x-ray shows chronic changes. Capillary refill less than 3 seconds. Dorsalis pedis and posterior tibial pulses 2+. No vascular compromise noted. Discussed pain management with the patient. Advised her to follow-up with her primary care provider and her orthopedic. She is in agreement with this plan. Follow-up precautions were given. Verbal discharge instructions were given to the patient. They verbalized understanding. They are stable for discharge. - Vital Signs Vital signs: Temp Pulse Resp BP Pulse Ox 97.7 F 115 H 18 130/90 H 96 09/22/20 02:57 09/22/20 02:57 09/22/20 02:57 09/22/20 02:57 09/22/20 02:57 - Laboratory Results Critical Laboratory Results Reviewed: No Critical Results - Radiology Results Critical Radiology Results Reviewed: No Critical Results Discharge - Discharge Clinical Impression: Knee pain Qualifiers: Chronicity: unspecified Laterality: right Qualified Code(s): M25.561 - Pain in right knee Condition: Stable Disposition: HOME, SELF-CARE Instructions: Oral Narcotic Medication ([facility]) Additional Instructions: You were seen today in the emergency department for knee pain. Your x-ray shows chronic changes, as we discussed. Please follow-up with your orthopedic doctor. Please also follow-up with your primary care provider for pain management. Prescriptions: Hydrocodone/Acetaminophen [Krypton 5-325 mg Tablet] 1 tab PO ASDIR PRN #12 tablet PRN Reason: Referrals: RASHMI MARTINEZ DO [Primary Care Provider] - Follow up in 3-5 days
[2020-09-22 05:46] VITALS: BP 160/93
== END 2020-09-22 05:46 | disposition home or self-care (01) ==
LOC: ER 02:47
DX: M25.561 Pain in right knee (principal); W19.XXXA Unspecified fall, initial encounter; M25.562 Pain in left knee; I10 Essential (primary) hypertension; E11.9 Type 2 diabetes mellitus without complications
CPT/HCPCS: 99284; 96372; 73560; J1100

== ENCOUNTER 2020-09-24 16:57 | Emergency (ER) | payer MEDICARE, MEDICAID ==
[2020-09-24 17:04] VITALS: BP 181/88
[2020-09-24] MEDS ORDERED: HYDROCODONE/ACETAMINOPHEN 5-325 MG (6 TAB/ER DISP) PO PRN (17:32)
--- NOTE | 2020-09-24 17:36 | ER Document Report ---
HPI - HPI Patient complains to provider of: Knee pain Time Seen by Provider: 09/24/20 17:23 Onset: Other - 2 weeks Onset/Duration: Persistent, Worse Quality of pain: Achy Pain Level: 5 Context: Presents complaining of bilateral knee pain for the past 2 weeks. Patient has a known history of arthritis and states [id number] medications are not helping her pain. Patient denies any new injury. Patient denies any fever. Patient states she attempted to get into her primary doctor's office but they were unable to see her today. Associated Symptoms: denies: Fever, Nausea, Vomiting, Weakness Exacerbated by: Movement, Walking Relieved by: Denies Similar symptoms previously: Yes Recently seen / treated by doctor: No - ROS ROS below otherwise negative: Yes Systems Reviewed and Negative: Yes All other systems reviewed and negative - CONSTITUTIONAL Constitutional: DENIES: Fever, Chills - GASTROINTESTINAL Gastrointestinal: DENIES: Nausea - MUSCULOSKELETAL Musculoskeletal: REPORTS: Extremity pain - DERM Skin Color: Normal Skin Problems: None Past Medical History - General Information source: Patient - Social History Smoking Status: Never Smoker Chew tobacco use (# tins/day): No Frequency of alcohol use: None Drug Abuse: None Occupation: None Lives with: Alone Family History: Reviewed & Not Pertinent - Past Medical History Cardiac Medical History: Reports: Hx Hypercholesterolemia, Hx Hypertension Neurological Medical History: Reports: Hx Migraine - chronic ARAGON Endocrine Medical History: Reports: Hx Diabetes Mellitus Type 2 Renal/ Medical History: Denies: Hx Peritoneal Dialysis GI Medical History: Reports: Hx Gastroesophageal Reflux Disease Musculoskeletal Medical History: Reports Hx Arthritis Past Surgical History: Reports: Hx Abdominal Surgery - hiatal hernia repair, Hx Hysterectomy, Hx Orthopedic Surgery - L Knee - Immunizations Hx Diphtheria, Pertussis, Tetanus Vaccination: No Vertical Provider Document - CONSTITUTIONAL Agree With Documented VS: Yes Exam Limitations: No Limitations General Appearance: WD/WN, No Apparent Distress - INFECTION CONTROL TRAVEL OUTSIDE OF THE [place] IN LAST 30 DAYS: No - HEENT HEENT: Atraumatic, Normocephalic - NECK Neck: Normal Inspection - RESPIRATORY Respiratory: Breath Sounds Normal, No Respiratory Distress - CARDIOVASCULAR Cardiovascular: Regular Rate, Regular Rhythm Pulses: Normal: Posterior tibial - MUSCULOSKELETAL/EXTREMETIES Musculoskeletal/Extremeties: MAEW, FROM, Tender - Bilateral knee joint tenderness, no erythema, no calor. Patient with full range of motion., Edema. negative: Eccymosis - NEURO Level of Consciousness: Awake, Alert, Appropriate Motor/Sensory: No Motor Deficit - DERM Integumentary: Warm, Dry, No Rash Course - Re-evaluation Re-evalutation: 09/24/20 17:33 Patient with flareup of chronic arthritic pain. Will give short course of pain medication at this time. Encourage patient to follow-up with orthopedics for further management. Patient without any acute injury, no concern for septic arthritis, gout or cellulitis. 09/24/20 19:42 - Vital Signs Vital signs: Temp Pulse Resp BP Pulse Ox 98.3 F 95 20 181/88 H 100 09/24/20 17:00 09/24/20 17:00 09/24/20 17:00 09/24/20 17:00 09/24/20 17:00 - Laboratory Results Critical Laboratory Results Reviewed: No Critical Results - Radiology Results Critical Radiology Results Reviewed: No Critical Results Discharge - Discharge Clinical Impression: Bilateral chronic knee pain Condition: Stable Disposition: HOME, SELF-CARE Instructions: Arthritis ([facility]) Additional Instructions: Return immediately for any new or worsening symptoms Followup with your primary care provider, call tomorrow to make a followup appoi ntment Follow-up with orthopedics for further management of your knee pain Prescriptions: Diclofenac Sodium 4 gm TP QID PRN #100 gel..gram. PRN Reason: Referrals: RASHMI MARTINEZ DO [Primary Care Provider] - Follow up as needed [facility] [Provider Group] - Follow up as needed
== END 2020-09-24 17:42 | disposition home or self-care (01) ==
LOC: ER 16:57
DX: M25.561 Pain in right knee (principal); M25.562 Pain in left knee; G89.29 Other chronic pain; I10 Essential (primary) hypertension; E11.9 Type 2 diabetes mellitus without complications
CPT/HCPCS: 99283; A9270

== ENCOUNTER 2020-09-27 15:32 | Emergency (ER) | payer MEDICARE, MEDICAID ==
[2020-09-27] MEDS ORDERED: ACETAMINOPHEN 325 MG TABLET PO ONE (16:24)
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
[2020-09-27 16:32] VITALS: BP 185/104
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
--- NOTE | 2020-09-27 17:11 | RADIOLOGY REPORT (SQ) ---
EXAM DESCRIPTION: KNEE LEFT 4 VIEW IMAGES COMPLETED DATE/TIME: 09/27/2020 3:56 pm REASON FOR STUDY: Increasing pain to both knees COMPARISON: None. NUMBER OF VIEWS: Four views. TECHNIQUE: AP, lateral, and both oblique radiographic images acquired of the left knee. LIMITATIONS: None. FINDINGS: MINERALIZATION: Normal. BONES: No acute fracture or cortical disruption. Large marginal osteophytes, subchondral sclerosis a nd cystic change. JOINT: Moderate joint effusion. Chondrocalcinosis. No intra-articular loose body in the lateral com partment. SOFT TISSUES: No soft tissue swelling or radiopaque foreign body. Vascular calcifications. OTHER: No other significant finding. IMPRESSION: 1. No acute fracture or dislocation of the left knee. 2. Severe tricompartmental osteoarthritis. 3. Chondrocalcinosis and joint effusion. Findings can be seen with CPPD or gout. TECHNICAL DOCUMENTATION: JOB ID: [id number] 2010 [employer]- All Rights Reserved Reading location - IP/workstation name: [email or web address]
--- NOTE | 2020-09-27 17:12 | RADIOLOGY REPORT (SQ) ---
EXAM DESCRIPTION: KNEE RIGHT 4 VIEWS IMAGES COMPLETED DATE/TIME: 09/27/2020 3:56 pm REASON FOR STUDY: Increasing pain to both knees COMPARISON: None. NUMBER OF VIEWS: Four views. TECHNIQUE: AP, lateral, and both oblique radiographic images acquired of the right knee. LIMITATIONS: None. FINDINGS: MINERALIZATION: Normal. BONES: No acute fracture or cortical disruption. Large marginal osteophytes. Joint space narrowing with subchondral sclerosis and cystic change particularly in the medial compartment. JOINT: Moderate joint effusion. Chondrocalcinosis. No definite intra-articular loose body. SOFT TISSUES: No soft tissue swelling. Vascular calcifications. No radiopaque foreign body. OTHER: No other significant finding. IMPRESSION: 1. No acute fracture or dislocation of the right knee. 2. Severe tricompartmental osteoarthritis. 3. Chondrocalcinosis and small joint effusion. Findings can be seen with CPPD or gout. TECHNICAL DOCUMENTATION: JOB ID: [id number] 2010 [employer]- All Rights Reserved Reading location - IP/workstation name: [email or web address]
== END 2020-09-27 23:05 | disposition left against medical advice (07) ==
LOC: ER 15:32
DX: M25.562 Pain in left knee (principal); M25.561 Pain in right knee; E78.00 Pure hypercholesterolemia, unspecified; I10 Essential (primary) hypertension; E11.9 Type 2 diabetes mellitus without complications; Z88.6 Allergy status to analgesic agent
CPT/HCPCS: 99281; 73564 ×2; A9270

== ENCOUNTER 2020-10-05 11:54 | Emergency (ER) | payer MEDICARE, MEDICAID ==
[2020-10-05 12:01] VITALS: BP 114/94
[2020-10-05] MEDS ORDERED: ACETAMINOPHEN 325 MG TABLET PO ONE (12:23)
--- NOTE | 2020-10-05 12:26 | ER Document Report ---
ED General - General Chief Complaint: Leg Pain Stated Complaint: LEG PAIN Primary Care Provider: RASHMI MARTINEZ DO [Primary Care Provider] - Follow up as needed TRAVEL OUTSIDE OF THE [place] IN LAST 30 DAYS: No - HPI Notes: Chief Complaint: Low back and right knee pain Historian: History obtained from patient HPI: This is a 79-year-old female presents to the ER planing of low back and right knee pain after a near fall just prior to arrival. Patient nearly tripped over her service dog and caught herself. She denies incontinence, saddle anesthesia, lower extremity weakness or numbness. Patient is amatory with pain. ROS: Constitutional: no fevers. HEENT: no ARAGON, sore throat, or vision changes. CV: no chest pain or palpitations. Resp: no cough or SOB. GI: no abdominal pain, or n/v/d. : no dysuria, hematuria, or incont. MSK: right knee pain, low back pain Skin: no rashes or itching. Neuro: no seizures, weakness, numbness, or confusion. Hematological: no ecchymosis or easy bleeding. Endocrine: no polyuria/polydipsia, no heat/cold intolerance. Psych: no SI/HI, AH/VH or memory loss. PMHx: Reviewed and agree as charted by RN. PSHx: Reviewed and agree as charted by RN. SOCHx: Reviewed and agree as charted by RN. FHX: No significant familial comorbid conditions directly related to patient complaint Current Medications: Reviewed and agree with the patient medications as charted by the RN. Allergies: Reviewed and agree with the listed allergies as charted by the RN Physical Exam: Vitals: Reviewed in chart as documented by RN. General: Alert and in NAD. Head: Normocephalic; atraumatic Eyes: PERRLA, Conjunctivae clear sclerae non-icteric bilat ENT: no soft palate swelling or uvular deviation Neck: trachea midline, no unilateral swelling/tenderness/lymphadenopathy CV: RRR, no M/R/G; symmetric distal pulses Resp: respirations even and unlabored, CTA bilat. GI: abd soft and nondistended. NTTP. normal BS. no masses/HSM. no CVAT bilat MSK: msk- lumbar- mild midline tenderness, no swelling or deformity. FROM of L spine. SLR neg bilat. Strength 5/5 and equal to BLE. no saddle anesthesia. sensation intact to BLE. pedal pulses 2+ to BLE. cap refill <3 sec diffuse mild knee tenderness. no swelling or deformity. knee w/ chronic degen changes. mild dec in ROM of knee but able to flex/extend knee. no laxity w/ varus/valgus stress. neg ant/post drawer. pedal pulse 2+ cap refill < 3 sec. sensation intact to BLE. Skin: warm, moist, good turgor. no rash/lesions Neuro: Alert and oriented X 4. following CN 2-12 intact. no unilateral weakness/numbness Psych: No SI/HI or AH/VH. Medical Decision-Making: Medical Decision-making/Differential Diagnosis: Consider various etiologies including but not limited to skin/soft tissue structure injury, MSK injury, strain/sprain, fracture, dislocation, bursitis, tendonitis, contusion, ect Plan- xr knee and L spine. tylenol for pain control. This course of action was discussed with the patient and/or family. They were amenable to this, verbalized understanding, and were without further questions. - Related Data Allergies/Adverse Reactions: morphine [Morphine] Allergy (Mild, Verified 10/05/20 12:14) itching Home Medications: patient states she does not know what they are called. Past Medical History - Social History Smoking Status: Never Smoker Chew tobacco use (# tins/day): No Frequency of alcohol use: None Drug Abuse: None Family History: Reviewed & Not Pertinent - Past Medical History Cardiac Medical History: Reports: Hx Hypercholesterolemia, Hx Hypertension Neurological Medical History: Reports: Hx Migraine - chronic ARAGON Endocrine Medical History: Reports: Hx Diabetes Mellitus Type 2 Renal/ Medical History: Denies: Hx Peritoneal Dialysis GI Medical History: Reports: Hx Gastroesophageal Reflux Disease, Hx Hiatal Hernia Musculoskeletal Medical History: Reports Hx Arthritis, Reports Hx Musculoskeletal Deformity, Reports Hx Musculoskeletal Trauma Traumatic Medical History: Reports: Hx Fractures Past Surgical History: Reports: Hx Abdominal Surgery - hiatal hernia repair, Hx Hysterectomy, Hx Orthopedic Surgery - L Knee - Immunizations Hx Diphtheria, Pertussis, Tetanus Vaccination: No Physical Exam - Vital signs Vitals: Temp Pulse Resp BP Pulse Ox 97.8 F 103 H 18 114/94 H 100 10/05/20 11:58 10/05/20 11:58 10/05/20 11:58 10/05/20 11:58 10/05/20 11:58 Course - Re-evaluation Re-evalutation: 10/05/20 13:11 imaging reviewed- chronic degen changes of l spine and knee. pending official read. plan to treat as knee sprain and lumbar sprain. return factors and danger signs discussed. pcp f/u this week. 10/05/20 13:26 imaigng neg. will howard wrap knee. wbat. dispense pack of norco given for pain control. may also take motrin. encrouaged RICE. ortho referral given .return factors discussed. - Vital Signs Vital signs: Temp Pulse Resp BP Pulse Ox 97.8 F 103 H 18 114/94 H 100 10/05/20 11:58 10/05/20 11:58 10/05/20 11:58 10/05/20 11:58 10/05/20 11:58 - Laboratory Results Critical Laboratory Results Reviewed: No Critical Results - Radiology Results Critical Radiology Results Reviewed: No Critical Results Discharge - Discharge Clinical Impression: Right knee sprain Qualifiers: Encounter type: initial encounter Involved ligament of knee: unspecified ligament Qualified Code(s): S83.91XA - Sprain of unspecified site of right knee, initial encounter Lumbar sprain Qualifiers: Encounter type: initial encounter Qualified Code(s): S33.5XXA - Sprain of ligaments of lumbar spine, initial encounter Condition: Stable Disposition: HOME, SELF-CARE Instructions: Low Back Pain ([facility]), Sprained Knee ([facility]) Additional Instructions: no driving on pain medications. rest, ice, and elevate knee. call to schedule appointment with orthopedics for follow up. may also take motrin. return to the ER if your condition worsens. Referrals: RASHMI MARTINEZ DO [Primary Care Provider] - Follow up as needed RAISA HARP JR, DO [ACTIVE PROVISIONAL STAFF] - Follow up as needed
--- NOTE | 2020-10-05 13:17 | RADIOLOGY REPORT (SQ) ---
EXAM DESCRIPTION: KNEE RIGHT 4 VIEWS IMAGES COMPLETED DATE/TIME: 10/05/2020 1:04 pm REASON FOR STUDY: fall right knee pain COMPARISON: 09/27/2020 NUMBER OF VIEWS: Four views. TECHNIQUE: AP, lateral, and both oblique radiographic images acquired of the right knee. LIMITATIONS: None. FINDINGS: MINERALIZATION: Normal. BONES: No acute fracture or dislocation. No worrisome bone lesions. JOINT: Advanced osteoarthritis patellofemoral and medial compartments. No effusion. SOFT TISSUES: No soft tissue swelling. No radio-opaque foreign body. OTHER: No other significant finding. IMPRESSION: No acute findings. TECHNICAL DOCUMENTATION: JOB ID: [id number] 2010 [employer]- All Rights Reserved Reading location - IP/workstation name: [email or web address]
--- NOTE | 2020-10-05 13:19 | RADIOLOGY REPORT (SQ) ---
EXAM DESCRIPTION: L SPINE 2 VIEWS IMAGES COMPLETED DATE/TIME: 10/05/2020 1:04 pm REASON FOR STUDY: fall, low back pain COMPARISON: 09/28/2018 NUMBER OF VIEWS: Three views. TECHNIQUE: AP, lateral, and inferior coned down lateral views of the lumbar spine. LIMITATIONS: None. FINDINGS: MINERALIZATION: Osteopenia. SEGMENTATION: Normal. No transitional anatomy. ALIGNMENT: Unchanged convex right scoliosis. VERTEBRAE: Maintained height. No fracture or worrisome bone lesion. DISCS: Multilevel disc space narrowing with osteophytes. POSTERIOR ELEMENTS: Pedicles and facets are intact. No pars defect or posterior arch defects. Facet arthropathy is present. HARDWARE: None in the spine. PARASPINAL SOFT TISSUES: Calcified aorta. PELVIS: Intact as visualized. No fractures or worrisome bone lesions. SI joints intact. OTHER: No other significant finding. IMPRESSION: No acute findings. TECHNICAL DOCUMENTATION: JOB ID: [id number] 2010 [employer]- All Rights Reserved Reading location - IP/workstation name: [email or web address]
[2020-10-05] MEDS ORDERED: HYDROCODONE/ACETAMINOPHEN 5-325 MG (6 TAB/ER DISP) PO PRN (13:26)
== END 2020-10-05 14:19 | disposition home or self-care (01) ==
LOC: ER 11:54
DX: S83.91XA Sprain of unspecified site of right knee, initial encounter (principal); S33.5XXA Sprain of ligaments of lumbar spine, initial encounter; M54.5 Low back pain; W18.49XA Other slipping, tripping and stumbling without falling, initial encounter; Y92.009 Unspecified place in unspecified non-institutional (private) residence as the place of occurrence of the external cause; E78.00 Pure hypercholesterolemia, unspecified; I10 Essential (primary) hypertension; E11.9 Type 2 diabetes mellitus without complications; Z90.710 Acquired absence of both cervix and uterus
CPT/HCPCS: 99284; 73564; 72100; A9270 ×2